=== PATIENT | male | born 1940 | race Caucasian/White ===

== ENCOUNTER 2020-01-21 11:53 | Emergency (ER) | payer OTHER, SELFPAY ==
[2020-01-21 12:14] VITALS: BP 113/81; PULSE 98; RESP 24; TEMP 36.8; O2SAT 95; BMI 43.3
[2020-01-21 12:22] VITALS: BP 113/81; PULSE 107; RESP 18; O2SAT 109
--- NOTE | 2020-01-21 12:25 | ED_ITS ---
HPI - Skin/Abscess/Foreign Bdy General: Chief complaint: Skin/Abscess/Foreign Body Stated complaint: R HAND WOUND Time Seen by Provider: 01/21/20 12:13 History of Present Illness: HPI narrative: Patient has hematoma to the dorsal surface of his right hand that occurred from an accident last week did see his PCP and was evaluated patient's tetanus is up-to-date has no signs of infection he says he is able to move his hand has no pain is just from the tightness of the skin. MD complaint: other (Hematoma right hand) Onset (ago): day(s) Tetanus up to date: yes Location: R hand Severity: mild Quality: aching Pain Consistency: constant Relieving factors: none Exacerbating factors: none Associated symptoms: Reports no associated symptoms; Deny chills, fever(s), nausea or vomiting Review of Systems Const: Denies: fever(s), chills or body aches Eyes: Denies: change in vision or blurry vision ENMT: Denies: throat pain or nasal congestion Card: Denies: chest pain or dyspnea on exertion Resp: Denies: dyspnea, productive cough or non-productive cough GI: Denies: abdominal pain, nausea or vomiting : Denies: difficulty urinating Musc: Denies: extremity pain Skin/Breast: Reports: other (Hematoma to the right hand tenderness); Denies: rash Neuro: Denies: headache(s) Psych: Denies: anxiety or depression Luigi/Lymph: Denies: easy bruising Physical Exam 2 Const: COMMON NORMALS: no acute distress, average body habitus and patient oriented x3 HENMT: COMMON NORMALS: normocephalic HEAD & SCALP: normal to inspection and normocephalic FACE & SINUS: normal facial exam Eye: COMMON NORMALS: conjunctivae normal GENERAL EYE: appearance normal, both eyes and all related structures CONJUNCTIVA: Yes conjunctivae normal Neck/C-Spine: COMMON NORMALS: no JVD Chest: COMMONS NORMALS: normal inspection of the chest Resp: COMMON NORMALS: normal respiratory effort Cardio: COMMON NORMALS: no JVD Extremity: COMMON NORMALS: normal to inspection and full ROM RIGHT UPPER EXTREMITY: Yes hand & digits (Large hematoma on the dorsal surface of the right hand no erythema noted) Neuro: COMMON NORMALS: patient oriented x3 Course Vital Signs: Vital signs: Vital Signs Temperature 98.2 F 01/21/20 12:14 Pulse Rate 107 H 01/21/20 12:22 Respiratory Rate 18 01/21/20 12:22 Blood Pressure 113/81 01/21/20 12:22 Pulse Oximetry 109 H 01/21/20 12:22 MDM - Skin/Abscess/Foreign Bdy MDM Narrative: Medical decision making narrative: I lacerated hematoma on the dorsal surface of right hand after sterile prep with a #11 blade and expressed a large amount of old blood and then it was dressed with a pressure dressing Discharge Plan Discharge Patient Disposition: Home Clinical Impression: Traumatic hematoma of right hand Qualifiers: Encounter type: initial encounter Qualified Code(s): S60.221A - Contusion of right hand, initial encounter Condition: Stable Discharge Orders: Discharge Order (Routine); Ordered 01/21/20 Ordered By: Kelvin Martinez Discharge Diet: Usual diet Discharge Activity: Increase activity as tolerated Activity Restrictions/Additional Instructions: Keep right hand wrapped for least 24 hours monitor for signs and symptoms of infection follow-up your primary care provider if any problems develop Coding Level of Care Code ED Technology Project Manager for Eladio Fwd Exam Comprehensive
[2020-01-21] MEDS: lidocaine 1% INJ 20 mL INTRADERMA (12:29)
[2020-01-21 12:58] VITALS: BP 113/91; PULSE 109; RESP 18; O2SAT 95
[2020-01-21 13:07] VITALS: BP 161/104; PULSE 95; RESP 18; TEMP 36.6; O2SAT 95
== END 2020-01-21 13:09 | disposition home or self-care (01) ==
LOC: ER 12:56
PROVIDERS: Emergency Provider Nurse Practitioner Family
DX: S60.221A Contusion of right hand, initial encounter (principal); X58.XXXA Exposure to other specified factors, initial encounter
CPT/HCPCS: 12345; 99281; 99282

== ENCOUNTER 2020-01-24 10:31 | Emergency (ER) | payer OTHER, SELFPAY ==
[2020-01-24 10:39] VITALS: PULSE 87; RESP 18; TEMP 36.8; O2SAT 96; BMI 43.6
--- NOTE | 2020-01-24 11:00 | CT_ITS ---
WS: [id number] CT RIGHT HAND, WITH CONTRAST HISTORY: abscess Technique: All CT scans at [facility] use at least one of these dose optimization techniq ues: automated exposure control; mA and/or kV adjustment per patient size (includes targeted exams wh ere dose is matched to clinical indication); or iterative reconstruction. DLP: 628.47 mGy.cm COMPARISON: None available. Enhancing complex fluid collection along the dorsal surface of the hand at the level of the mid carpa l measures 4.0 x 2.2 x 5.3 cm. Mass extends from the proximal metacarpals inferiorly to nearly the di stal metacarpals. There is increased density within the fluid collection which may be hemorrhage or p us. No additional collection. 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 5 mm radiopaque fore ign body in the soft tissues adjacent to the distal lateral radius. No osteomyelitis is appreciated. CT/CT hand RT w con [id number] IMPRESSION: Complex soft tissue abscess along the dorsal surface of the hand measures 4.0 x 2.2 x 5.3 cm.
--- NOTE | 2020-01-24 11:02 | W.ED.EXTPRO ---
HPI - Extremity Problem General: Chief complaint: Extremity Injury, Upper Stated complaint: RIGHT HAND PAIN Time Seen by Provider: 01/24/20 10:39 History of Present Illness: HPI Narrative: 79-year-old male he had his right hand crushed between a cattle panel and a SHERIDAN week ago he was in about 4 days ago and had drainage from an abscess on the dorsum of his right hand. It is recurred and now the wound has sealed up and is no longer draining and is swollen and fluctuant to palpation he denies any fever sweats or chills states relatively pain-free. He does have difficult time closing his fist completely. MD Complaint: extremity pain and extremity swelling Onset (ago): day(s) Pain Consistency: constant Location: right Quality: aching Radiation: none Relieving factors: nothing Exacerbating factors: nothing Associated symptoms: Deny arthralgias, chest pain, fever(s), myalgias, rash or short of breath Context: other (Recent crush injury) Review of Systems Const: Denies: fever(s) ENMT: Denies: throat pain, ear or mastoid pain, nasal discharge or nasal congestion Card: Denies: chest pain Resp: Denies: dyspnea, productive cough or non-productive cough GI: Denies: abdominal pain, nausea, vomiting, hematemesis, coffee ground emesis, diarrhea, constipation, bloating, hematochezia or melena : Denies: flank pain, dysuria, urinary frequency or urinary urgency Skin/Breast: Denies: rash PFSH ED PFSH: Medical History (Updated 01/29/20 @ 00:02 by ) COPD (chronic obstructive pulmonary disease) Diabetes mellitus Social History (Updated 01/24/20 @ 11:08 by Eder Whitaker DO) Smoking and tobacco status: former smoker Alcohol intake: never Physical Exam Const: COMMON NORMALS: no acute distress GENERAL APPEARANCE: cooperative and comfortable ORIENTATION/CONSCIOUSNESS: Yes awake, Yes oriented to person, Yes oriented to place and Yes oriented to time HENMT: COMMON NORMALS: normocephalic, atraumatic and hearing grossly normal bilaterally HEAD & SCALP: normocephalic and atraumatic Eye: COMMON NORMALS: Equal, round and reactive pupils present, EOMs intact bilaterally, conjunctivae normal and no scleral icterus CONJUNCTIVA: Yes conjunctivae normal PUPIL: Yes Equal, round and reactive pupils present Neck/C-Spine: COMMON NORMALS: full ROM, no lymphadenopathy, supple and no JVD Lymph: LYMPHATIC: no lymphadenopathy noted and no lymphedema noted Resp: COMMON NORMALS: normal respiratory effort, No retractions, No use of accessory muscles and clear to auscultation bilaterally AUSCULTATION: clear to auscultation bilaterally Cardio: COMMON NORMALS: no JVD, regular rate, regular rhythm and No murmurs present (Cardio) RATE: regular rate RHYTHM: regular rhythm GI: COMMON NORMALS: Soft to palpation and No hepatosplenomegaly present AUSCULTATION: Yes normoactive bowel sounds PALPATION: Yes Soft to palpation, No Tenderness to palpation present (GI), No Guarding due to palpation present (GI) and Yes No hepatosplenomegaly present Extremity: COMMON NORMALS: normal to inspection, capillary refill normal, no clubbing, cyanosis or edema, no calf tenderness and no pedal edema Neuro: SENSORIUM/ORIENTATION: Yes oriented to person, Yes oriented to place and Yes oriented to time Skin: COMMON NORMALS: no rashes or lesions noted GENERAL SKIN EXAM: no rashes or lesions noted Procedures Abscess I/D Site: upper extremity (R hand) Side (if applicable): right Local Anesthetic: lidocaine 1% Amount of anesthesia used (mL): 4 Technique: incised with #11 blade Amount of fluid expressed (mL): 100 Irrigation: No Packing used?: none Complications: other (none - expressed aprox 100 ml clotted blooed) Course Vital Signs: Vital signs: Vital Signs Temperature 98.2 F 01/24/20 10:39 Pulse Rate 91 01/24/20 13:46 Respiratory Rate 18 01/24/20 13:46 Blood Pressure 142/111 01/24/20 13:46 Pulse Oximetry 97 01/24/20 13:46 MDM - Extremity (Nontraumatic) MDM Narrative: Medical decision making narrative: Case management asked to make appointment with Ortho for follow-up Lab Data: Labs: Lab Results 01/24/20 01/24/20 Range/Units 11:08 11:08 WBC 9.0 (4.0-10.0) 10^3/ uL RBC 4.36 (4.1-5.3) 10^6/u L Hgb 12.5 (11.7-16.6) g/dL Hct 38.2 L (42.0-52.0) % MCV 87.6 (80-94) fL MCH 28.7 (28.0-34.0) pg MCHC 32.7 (30.0-36.0) g/dL RDW 14.4 (12.1-15.1) % Plt Count 259 (130-400) 10^3/c mm MPV 10.8 H (7.4-10.4) fL Neut % (Auto) 61.5 % Lymph % (Auto) 22.3 % Waller % (Auto) 11.6 % Eos % (Auto) 3.1 % Baso % (Auto) 1.2 % Neut # (Auto) 5.54 (1.8-7.7) 10^3/u L Lymph # (Auto) 2.0 (0.8-4.8) 10^3/u L Waller # (Auto) 1.1 H (0.2-0.9) 10^3/u L Eos # (Auto) 0.3 (0.0-0.8) 10^3/u L Baso # (Auto) 0.1 (0.0-0.1) 10^3/u L Nucleated RBC % (a uto) 0 % Nucleated RBCs # 0.0 /100WBC Sodium 142 (136-145) mmol/L Potassium 3.6 (3.5-5.1) mmol/L Chloride 105 (98-107) mmol/L Carbon Dioxide 26 (22-29) mmol/L Anion Gap 14.6 (5-19) BUN 11 (8-23) mg/dL Creatinine 0.9 (0.7-1.2) mg/dL GFR Calculation Not Reportable Glucose 128 H (65-115) mg/dL Calculated Osmolal ity 292 (285-295) mOsm/k g Calcium 9.1 (8.5-10.5) mg/dL Discharge Plan Discharge Patient Disposition: Home Clinical Impression: Hematoma Condition: Stable Discharge Orders: Discharge Order (Routine); Ordered 01/24/20 Ordered By: Eder Whitaker Discharge Diet: As Directed Discharge Activity: Limit activity as instructed Activity Restrictions/Additional Instructions: Limit use of right hand. Change dressing once daily apply topical antibiotic [id number] Bactrim DS 1 p.o. twice daily x5 days follow-up with orthopedics next week in the office Discharge Date/Time: 01/24/20 13:52 Coding Level of Care Code ED Personal Fitness Trainer for Jamieg Fwd Exam Comprehensive
[2020-01-24 11:05] VITALS: BP 153/95; PULSE 90; RESP 18; O2SAT 95
[2020-01-24 11:21] LABS: Basophils # 0.1 10^3/uL (0.0-0.1); Basophils % 1.2 %; Eosinophils # 0.3 10^3/uL (0.0-0.8); Eosinophils % 3.1 %; Hematocrit 38.2 % (42.0-52.0); Hemoglobin 12.5 g/dL (11.7-16.6); Lymphocytes % 22.3 %; Mean Corpuscular HGB Conc 32.7 g/dL (30.0-36.0); Mean Corpuscular Hemoglobin 28.7 pg (28.0-34.0); Mean Corpuscular Volume 87.6 fL (80-94); Mean Platelet Volume 10.8 fL (7.4-10.4); Monocytes # 1.1 10^3/uL (0.2-0.9); Monocytes % 11.6 %; Neutrophils # 5.54 10^3/uL (1.8-7.7); Neutrophils % 61.5 %; Nucleated Red Blood Cells % 0 %; Platelet Count 259 10^3/cmm (130-400); Red Blood Count 4.36 10^6/uL (4.1-5.3); Red Cell Distribution Width 14.4 % (12.1-15.1)
[2020-01-24 11:37] LABS: Anion Gap 14.6 (5-19); Blood Urea Nitrogen 11 mg/dL (8-23); Calcium 9.1 mg/dL (8.5-10.5); Carbon Dioxide 26 mmol/L (22-29); Chloride 105 mmol/L (98-107); Glucose 128 mg/dL (65-115); Osmolality Calculated 292 mOsm/kg (285-295); Potassium 3.6 mmol/L (3.5-5.1); Sodium 142 mmol/L (136-145)
[2020-01-24] MEDS: iohexol 300 mg/mL 100 mL Btl IV (12:04)
--- NOTE | 2020-01-24 12:16 | PC.NURSE ---
Read and agree with assessment
[2020-01-24] MEDS: neomycin-poly-bacitracin oint 0.9 gm Pkt 1 APPLIC TOPICAL (13:44)
--- NOTE | 2020-01-24 13:45 | PC.NURSE ---
Wound dressed with telfa, bulky 4x4, and yessy wrap.
[2020-01-24 13:46] VITALS: BP 142/111; PULSE 91; RESP 18; O2SAT 97
--- NOTE | 2020-01-25 09:28 | DCPLANNER ---
appointment manager had message to schedule a follow up appointment for patient with ortho. appointment manager called the ortho clinic, spoke with Noemi, gave clinic patients information. appointment manager was told that patients information would be printed and reviewed. Clinic will call patient with appointment information.
--- NOTE | 2020-01-29 10:55 | DCPLANNER ---
Dulce from ortho called rn case management with appointment information with ortho. Patient has [facility], rn case management called August with [facility], was told that patient had a surgery consult placed with Dr. Torrez. event operations manager called [facility], was told that clinic has a referral placed for patient. Clinic will call patient with appointment information. event operations manager spoke with Dr. Whitaker, referring physician to ortho, was told that it would be fine for patient to follow up with surgery. event operations manager called the ortho clinic, spoke with Kassie, and cancelled the appointment with ortho. [facility] will contact patient with appointment information.
== END 2020-01-24 13:52 | disposition home or self-care (01) ==
PROVIDERS: Emergency Provider Family Medicine
DX: S60.221A Contusion of right hand, initial encounter (principal); J44.9 Chronic obstructive pulmonary disease, unspecified; E11.9 Type 2 diabetes mellitus without complications; Z87.891 Personal history of nicotine dependence; W23.0XXA Caught, crushed, jammed, or pinched between moving objects, initial encounter
CPT/HCPCS: 10140; 12345; 36415; 73201; 80048; 85025; 87040; 87070; 87075; 87205; 99282; 99283; Q9967

== ENCOUNTER → 2020-04-22 15:20 | Outpatient (BNVA) | payer OTHER, SELFPAY | PROVIDERS: Referring Provider Family Medicine; Visit Provider Podiatrist Foot & Ankle Surgery | DX: M25.572 Pain in left ankle and joints of left foot (principal) | CPT/HCPCS: 73630 ==

== ENCOUNTER → 2020-12-19 12:09 | Outpatient (BNVA) | payer OTHER, SELFPAY | PROVIDERS: PCP Family Medicine; Visit Provider Podiatrist Foot & Ankle Surgery | DX: M19.071 Primary osteoarthritis, right ankle and foot (principal) | CPT/HCPCS: 73610; 73630 ==

== ENCOUNTER → 2021-01-21 10:28 | Outpatient (BNVA) | payer OTHER, SELFPAY | PROVIDERS: PCP Family Medicine; Referring Provider Family Medicine; Visit Provider Specialist | DX: M25.762 Osteophyte, left knee (principal); M25.761 Osteophyte, right knee; M25.561 Pain in right knee; M25.562 Pain in left knee; M17.11 Unilateral primary osteoarthritis, right knee; M77.8 Other enthesopathies, not elsewhere classified | CPT/HCPCS: 73560; 73565 ==

== ENCOUNTER 2021-02-18 14:20 | Outpatient (CLI) | payer OTHER, SELFPAY | END 2021-02-18 14:21 | disposition home or self-care (01) | LOC: WOUND 14:22 | PROVIDERS: PCP Family Medicine; Visit Provider Thoracic Surgery (Cardiothoracic Vascular Surgery) | DX: I96 Gangrene, not elsewhere classified (principal); L89.612 Pressure ulcer of right heel, stage 2; Z87.891 Personal history of nicotine dependence | CPT/HCPCS: 11042; G0463 ==

== ENCOUNTER 2021-02-25 14:45 | Outpatient (CLI) | payer OTHER, SELFPAY | END 2021-02-25 14:46 | disposition home or self-care (01) | LOC: WOUND 14:46 | PROVIDERS: PCP Family Medicine; Visit Provider Thoracic Surgery (Cardiothoracic Vascular Surgery) | DX: I96 Gangrene, not elsewhere classified (principal); L89.612 Pressure ulcer of right heel, stage 2; E11.9 Type 2 diabetes mellitus without complications; Z87.891 Personal history of nicotine dependence | CPT/HCPCS: 11042; A6021 ==

== ENCOUNTER 2021-03-04 14:33 | Outpatient (CLI) | payer OTHER, SELFPAY | END 2021-03-04 14:34 | disposition home or self-care (01) | LOC: WOUND 14:34 | PROVIDERS: PCP Family Medicine; Visit Provider Thoracic Surgery (Cardiothoracic Vascular Surgery) | DX: I96 Gangrene, not elsewhere classified (principal); L89.612 Pressure ulcer of right heel, stage 2; E11.9 Type 2 diabetes mellitus without complications; Z87.891 Personal history of nicotine dependence | CPT/HCPCS: 11042 ==

== ENCOUNTER 2021-03-11 15:02 | Outpatient (CLI) | payer OTHER, SELFPAY | END 2021-03-11 15:03 | disposition home or self-care (01) | LOC: WOUND 15:03 | PROVIDERS: PCP Family Medicine; Visit Provider Nurse Practitioner Family | DX: L89.612 Pressure ulcer of right heel, stage 2 (principal); Z87.891 Personal history of nicotine dependence | CPT/HCPCS: 11042 ==

== ENCOUNTER 2021-03-18 15:11 | Outpatient (CLI) | payer OTHER, SELFPAY | END 2021-03-18 15:12 | disposition home or self-care (01) | LOC: WOUND 15:12 | PROVIDERS: PCP Family Medicine; Visit Provider Thoracic Surgery (Cardiothoracic Vascular Surgery) | DX: L89.612 Pressure ulcer of right heel, stage 2 (principal); E11.9 Type 2 diabetes mellitus without complications; Z87.891 Personal history of nicotine dependence | CPT/HCPCS: 97597 ==

== ENCOUNTER 2021-04-01 14:31 | Outpatient (CLI) | payer OTHER, SELFPAY | END 2021-04-01 14:32 | disposition home or self-care (01) | LOC: WOUND 14:32 | PROVIDERS: PCP Family Medicine; Visit Provider Thoracic Surgery (Cardiothoracic Vascular Surgery) | DX: Z09 Encounter for follow-up examination after completed treatment for conditions other than malignant neoplasm (principal); Z87.891 Personal history of nicotine dependence | CPT/HCPCS: 99212 ==

== ENCOUNTER 2021-08-07 07:21 | Outpatient (CLI) | payer OTHER, SELFPAY ==
--- NOTE | 2021-08-07 07:42 | FL_ITS ---
WS: [id number] FL barium swallow [id number] REASON FOR EXAM: GERD FLUOROSCOPY TIME: 1.5 minutes FINDINGS: Swallowing of thin barium was fluoroscopically monitored from the oropharynx to the stomach. Spot dimple ms were obtained for documentation. The swallowing motion appeared normal with a small amount of penetration which cleared with additiona l swallowing. There was no aspiration. In the mid and lower esophagus there was weakening of the primary peristaltic wave with development o f tertiary contractions which were obtained barium in nearly the entire length of the esophagus. This was cleared with additional non barium swallows. There was a small reducible hiatal hernia with no significant Schatzki ring. No reflux was identified . FL/FL barium swallow [id number] IMPRESSION: Potential for aspiration. Speech therapy supervised formal swallowing study rec ommended. Esophageal dysmotility with weakening of the primary peristaltic wave and terti keith contractions leading to significant retention of barium in the esophagus. T he the retention in the esophagus could also add to the risk of aspiration.
== END 2021-08-07 07:22 | disposition home or self-care (01) ==
PROVIDERS: PCP Family Medicine; Visit Provider Family Medicine
DX: K21.9 Gastro-esophageal reflux disease without esophagitis (principal)
CPT/HCPCS: 74220

== ENCOUNTER → 2021-09-09 12:40 | Outpatient (BNVA) | payer OTHER, SELFPAY | PROVIDERS: PCP Family Medicine; Visit Provider Internal Medicine Cardiovascular Disease | DX: I48.91 Unspecified atrial fibrillation (principal); I25.10 Atherosclerotic heart disease of native coronary artery without angina pectoris; I10 Essential (primary) hypertension; E78.5 Hyperlipidemia, unspecified; E11.9 Type 2 diabetes mellitus without complications; Z79.84 Long term (current) use of oral hypoglycemic drugs; Z87.891 Personal history of nicotine dependence | CPT/HCPCS: 99204 ==

== ENCOUNTER 2021-09-24 09:09 | Outpatient (CLI) | payer OTHER, SELFPAY ==
--- NOTE | 2021-09-24 | FL_ITS ---
WS: [id number] MODIFIED BARIUM SWALLOW HISTORY: Other dysphagia FLUOROSCOPY TIME: 1.3 # of spot films: 1 Modified barium swallow was performed by the speech pathologist. Fluoroscopy was provided with the pa tient in a lateral projection. Multiple food consistencies were provided. Patient was able to swallow all food consistencies without difficulty. There was one single episode o f laryngeal penetration toward the end of the examination. No aspiration. Patient also swallowed the barium tablet without difficulty. FL/FL barium swallow modifd [id number] IMPRESSION: 1. No aspiration. 2. Single episode of laryngeal penetration. Please see speech therapist report also for recommendations.
== END 2021-09-24 09:10 | disposition home or self-care (01) ==
LOC: RAD 09:11
PROVIDERS: PCP Family Medicine; Visit Provider Family Medicine
DX: R13.10 Dysphagia, unspecified (principal)
CPT/HCPCS: 74230; 92611

== ENCOUNTER → 2021-10-08 08:48 | Outpatient (BNVA) | payer OTHER, SELFPAY | PROVIDERS: PCP Family Medicine; Visit Provider Specialist | DX: M17.0 Bilateral primary osteoarthritis of knee (principal) | CPT/HCPCS: 20610; J1100; J2795; J3301 ==

== ENCOUNTER → 2022-01-07 09:57 | Outpatient (BNVA) | payer OTHER, SELFPAY | PROVIDERS: PCP Family Medicine; Visit Provider Specialist | DX: M17.0 Bilateral primary osteoarthritis of knee (principal) | CPT/HCPCS: 20610; J7326 ==

== ENCOUNTER → 2022-01-18 11:59 | Outpatient (BNVA) | payer OTHER, SELFPAY | PROVIDERS: PCP Family Medicine; Visit Provider Surgery | DX: K21.9 Gastro-esophageal reflux disease without esophagitis (principal); R13.10 Dysphagia, unspecified | CPT/HCPCS: 99203 ==

== ENCOUNTER → 2022-01-19 13:05 | Outpatient (BNVA) | payer OTHER, SELFPAY | PROVIDERS: PCP Family Medicine; Visit Provider Internal Medicine Cardiovascular Disease | DX: I11.0 Hypertensive heart disease with heart failure (principal); I50.9 Heart failure, unspecified; I48.91 Unspecified atrial fibrillation; I25.10 Atherosclerotic heart disease of native coronary artery without angina pectoris | CPT/HCPCS: 99214 ==

== ENCOUNTER 2022-01-26 10:03 | Outpatient (CLI) | payer OTHER, SELFPAY ==
[2022-01-26 11:36] LABS: Anion Gap 17.8 (5-19); Blood Urea Nitrogen 22 mg/dL (8-23); Calcium 9.1 mg/dL (8.5-10.5); Carbon Dioxide 25 mmol/L (22-29); Chloride 100 mmol/L (98-107); Glucose 103 mg/dL (65-115); Magnesium 1.5 mg/dL (1.7-2.3); NT Pro B Type Natriuretic Pept 193 pg/mL (0-450); Osmolality Calculated 292 mOsm/kg (285-295); Potassium 3.8 mmol/L (3.5-5.1); Sodium 139 mmol/L (136-145)
== END 2022-01-26 10:04 | disposition home or self-care (01) ==
PROVIDERS: PCP Family Medicine; Visit Provider Internal Medicine Cardiovascular Disease
DX: I10 Essential (primary) hypertension (principal); I25.10 Atherosclerotic heart disease of native coronary artery without angina pectoris
CPT/HCPCS: 36415; 80048; 83735; 83880

== ENCOUNTER 2022-03-04 05:23 | Outpatient (CLI) | payer OTHER, SELFPAY ==
--- NOTE | 2022-03-04 06:15 | USCV_ITS ---
Huber Holloway Age: 81 Gender: M : 1940 Exam Date: 03/04/2022 06:11 Ordering Phys: Nancy He MD ([email or web address]) Technologist: DOMINICK [place] [facility] [place]: SHORTNESS OF BREATH BP: 140 / 78 HR: 68 Rhythm: Sinus Technical Quality: Fair MEASUREMENTS (Male / Female) Normal Values 2D ECHO LV Diastolic Diameter PLAX 5.4 cm 4.2 - 5.9 / 3.9 - 5.3 cm LV Systolic Diameter PLAX 3.7 cm IVS Diastolic Thickness 1.7 cm 0.6 - 1.0 / 0.6 - 0.9 cm IVS Systolic Thickness 2.4 cm LVPW Diastolic Thickness 1.7 cm 0.6 - 1.0 / 0.6 - 0.9 cm LVPW Systolic Thickness 2.2 cm LVOT Diameter 2.0 cm LV Ejection Fraction 2D Teich 58.7 % LV Ejection Fraction MOD 2C 65.9 % LV Ejection Fraction 2C AL 67.2 % LA Diameter 3.9 cm LA Width 3.4 cm LA Height 6.0 cm RA Width 3.6 cm RA Height 4.1 cm Aorta at Sinotubular Diameter 2.6 cm IVC Diameter 2.1 cm M-MODE Aortic Annulus Diameter 2.6 cm LA Ao Ratio MM 1.3 MV E Point Septal Separation 0.3 cm DOPPLER AV Peak Velocity 167.7 cm/s LVOT Peak Velocity 129.0 cm/s AV Area Cont Eq vti 2.3 cm squared AV Area Cont Eq pk 2.5 cm squared MV Peak Velocity 105.0 cm/s MV Area PHT 3.0 cm squared Mitral E to A Ratio 1.0 MV E' Velocity 55.0 cm/s Mitral E to MV E' Ratio 10.3 Mitral E to LV E' Lateral Ratio 9.6 Mitral E to LV E' Septal Ratio 11.2 TR Peak Velocity 230.2 cm/s TR Peak Gradient 21.2 mmHg TR Mean Velocity 169.5 cm/s TR Mean Gradient 13.1 mmHg TR Velocity Time Integral 70.6 cm TV Peak E Velocity 64.0 cm/s Right Atrial Pressure 3.0 mmHg Pulmonary Artery Systolic Pressu 24.2 mmHg FINDINGS Left Ventricle Normal left ventricular size, systolic function and wall thickness, with no diagnostic regional wall motion abnormalities. Left ventricular ejection fraction is estimated at 55 %. Normal diastolic function. Right Ventricle Normal right ventricular size and systolic function. Normal right ventricular systolic pressure. Right Atrium Normal right atrial size. Left Atrium Moderately increased left atrial size. Mitral Valve Mild mitral annular calcification. Structurally normal mitral valve. No mitral valve stenosis. No mitral valve regurgitation. Aortic Valve Aortic valve not well visualized. No aortic valve stenosis. No aortic valve regurgitation. Tricuspid Valve Structurally normal tricuspid valve. No tricuspid valve regurgitation. Pulmonic Valve Pulmonic valve not well visualized. Pericardium No pericardial effusion. Aorta Normal size aortic root and proximal ascending aorta. IVC Normal sized inferior vena cava. CONCLUSIONS 1. Normal left ventricular size, systolic function and wall thickness, with no diagnostic regional wall motion abnormalities. Left ventricular ejection fraction is estimated at 55-60 %. Normal diastolic function. 2. Normal right ventricular size and systolic function. 3. Moderately increased left atrial size. 4. No prior similar studies to compare. Nancy He MD (Electronically Signed) Final Date: 10 March 2022 10:06 S
== END 2022-03-04 05:24 | disposition home or self-care (01) ==
LOC: RAD 05:26
PROVIDERS: PCP Family Medicine; Visit Provider Internal Medicine Cardiovascular Disease
DX: R06.02 Shortness of breath (principal); I25.10 Atherosclerotic heart disease of native coronary artery without angina pectoris; I48.91 Unspecified atrial fibrillation
CPT/HCPCS: 93306

== ENCOUNTER 2022-04-22 06:43 | Day surgery (SDC) | payer OTHER, SELFPAY ==
[2022-04-20 09:02] VITALS: BMI 41.3
[2022-04-22 07:06] VITALS: BP 164/83; PULSE 71; RESP 18; TEMP 36.1; O2SAT 96
--- NOTE | 2022-04-22 07:30 | W.PM.OPSFHP ---
Same Day Surgery H&P Indication for Procedure/HPI DATE OF PROCEDURE: April 22, 2022 CHIEF COMPLAINT/INDICATIONFOR SURGICAL PROCEDURE: Difficulty in swallowing PREOP DIAGNOSIS: Dysphagia PLANNED PROCEDURE: Operation Date: 04/22/22 08:30 Proposed Procedures p EGD 63415,K21.9(Not Applicable) - Bimal Torrez MD 01/18/2022 This is a pleasant 81 years old gentleman referred to my practice with history of worsening dysphagia particularly to liquids.? For the past year or so.? The patient did undergo a modified barium swallow on 09/24/2021 that did show 1.? No aspiration. 2.? Single episode of laryngeal penetration. And a swallow study in the form of barium swallow that did show Potential for aspiration. Speech therapy supervised formal swallowing study recommended. Esophageal dysmotility with weakening of the primary peristaltic wave and tertiary contractions leading to significant retention of barium in the esophagus. The the retention in the esophagus could also add to the risk of aspiration. ? Patient was given recommendations by speech pathology to have liquids by straw and to be positioned in 90 degrees.? Amount of supervision as needed.? Limit size of spoonfuls to half teaspoon.? Medication administration forms with liquid.? Overall patient was encouraged to use a straw with liquids and decrease the size of his bites and sips to decrease risk of aspiration. Patient was referred to my practice for further evaluation. 04/22/2022 Patient comes today for EGD ROS All systems have been reviewed negative except as for the above or per problem list. Medications/Allergies* Home Medications Medication Instructions Recorded Confirmed Type albuterol sulfate 90 mcg/actuation 2 inh inhalation Q6H PRN Shortness 02/04/20 04/22/22 History breath activated powder inhaler Of Breath carvedilol 25 mg tablet 25 mg PO BID 02/04/20 04/22/22 History montelukast 10 mg tablet 10 mg PO DAILY 02/04/20 04/22/22 History tiotropium bromide 2.5 2 inh inhalation QAM 02/04/20 04/22/22 History mcg/actuation mist for inhalation amiodarone 200 mg tablet 200 mg PO DAILY 09/09/21 04/22/22 History clopidogrel 75 mg tablet 75 mg PO DAILY 09/09/21 04/22/22 History fluticasone 250 mcg-salmeterol 50 1 inh inhalation Q12H 09/09/21 04/22/22 History mcg/dose blistr powdr for inhalation metformin 1,000 mg tablet 1,000 mg PO BID 09/09/21 04/22/22 History nifedipine 60 mg tablet,extended 60 mg PO DAILY 09/09/21 04/22/22 History release 24 hr pantoprazole 40 mg tablet,delayed 40 mg PO DAILY 09/09/21 04/22/22 History release pravastatin 40 mg tablet 40 mg PO DAILY 09/09/21 04/22/22 History warfarin 5 mg tablet 5 mg PO DIRECTED 09/09/21 04/22/22 History cyanocobalamin (vitamin B-12) 1,000 mcg SUBCUT .1x month 01/18/22 04/22/22 History 1,000 mcg/mL injection kit furosemide 20 mg tablet 20 mg PO BID 04/22/22 04/22/22 History losartan 100 mg tablet 100 mg PO DAILY 04/22/22 04/22/22 History potassium chloride 10 mEq 20 meq PO DIRECTED 04/22/22 04/22/22 History tablet,extended release Allergies/Adverse Reactions Allergy/AdvReac Type Severity Reaction Status Date / Time No Known Allergies Allergy Verified 04/22/22 07:31 Pertinent History/Comorbid Conditions* Medical History (Updated 01/21/22 @ 17:24 by Nancy He MD) A-fib CAD (coronary artery disease) CHF (NYHA class III, ACC/AHA stage C) COPD (chronic obstructive pulmonary disease) Diabetes mellitus History of colon polyps Hyperlipidemia Hypertension Surgical History (Updated 09/09/21 @ 13:42 by Nancy He MD) S/P appendectomy S/P coronary angiogram Family History (Updated 09/09/21 @ 13:28 by Inez Dawkins RN) Diabetes Father Hypertension Father Social History Smoking and tobacco status: never smoked Alcohol intake: never Pertinent Exam Findings alert, oriented x 3, regular rate & rhythm and procedure specific exam findings (Abdominal exam nontender nondistended soft) Recommendations Surgery/Procedure today (EGD with possible biopsy) Coding Level of Care Code Acute O And M Supervisor for Chg Carlos
[2022-04-22 07:40] LABS: Glucose Point of Care 111 mg/dL (70-110)
[2022-04-22] MEDS: sodium chloride 0.9% 1,000 ML 30 ML IV (07:44)
--- NOTE | 2022-04-22 08:28 | ANES.PREANE2 ---
Pre-Anesthetic Assessment Height/Weight: Height 1.75 m Weight 127.006 kg Temp Pulse Resp BP Pulse Ox O2 Del Method 97.0 F L 71 18 164/83 96 04/22/22 07:06 04/22/22 07:06 04/22/22 07:06 04/22/22 07:06 04/22/22 07:06 04/22/22 07:06 Preop Diagnosis: Dysphagia Operation Date: 04/22/22 08:30 Proposed Procedures p EGD 99748,K21.9(Not Applicable) - Bimal Torrez MD Familial anesthetic complications: None Was Beta Charles taken within 24 hours: N/A Was Clonidine taken within 24 hours: N/A Last intake: Intake Last Liquid Date 04/21/22 Last Liquid Time 23:30 Last Solid Date 04/21/22 Last Solid Time 21:00 Social No alcohol and No tobacco Exam alert, oriented x 3, clear to auscultation bilaterally and regular rate & rhythm Airway Mallampati: Class III Dentition: other (missing) Pulmonary Chronic Obstructive Pulmonary Disease CV/HEM Atrial Fibrillation, Congestive Heart Failure and Hypertension Metabolic Diabetes Mellitus, Hyperlipidemia and Morbid Obesity Anesthetic Plan ASA status: 3 Anesthesia: MAC Risk of > 500 ml blood loss (7ml/kg in children): No Medications/Allergies Home Medications Medication Instructions Recorded Confirmed Last Taken Type albuterol sulfate 90 mcg/actuation 2 inh inhalation Q6H PRN Shortness 02/04/20 04/22/22 04/21/22 History breath activated powder inhaler Of Breath carvedilol 25 mg tablet 25 mg PO BID 02/04/20 04/22/22 04/21/22 History montelukast 10 mg tablet 10 mg PO DAILY 02/04/20 04/22/22 04/21/22 History tiotropium bromide 2.5 2 inh inhalation QAM 02/04/20 04/22/22 04/21/22 History mcg/actuation mist for inhalation amiodarone 200 mg tablet 200 mg PO DAILY 09/09/21 04/22/22 04/21/22 History clopidogrel 75 mg tablet 75 mg PO DAILY 09/09/21 04/22/22 04/17/22 History fluticasone 250 mcg-salmeterol 50 1 inh inhalation Q12H 09/09/21 04/22/22 04/21/22 History mcg/dose blistr powdr for inhalation metformin 1,000 mg tablet 1,000 mg PO BID 09/09/21 04/22/22 04/21/22 History nifedipine 60 mg tablet,extended 60 mg PO DAILY 09/09/21 04/22/22 04/21/22 History release 24 hr pantoprazole 40 mg tablet,delayed 40 mg PO DAILY 09/09/21 04/22/22 04/21/22 History release pravastatin 40 mg tablet 40 mg PO DAILY 09/09/21 04/22/22 04/21/22 History warfarin 5 mg tablet 5 mg PO DIRECTED 09/09/21 04/22/22 04/19/22 History cyanocobalamin (vitamin B-12) 1,000 mcg SUBCUT .1x month 01/18/22 04/22/22 04/06/22 History 1,000 mcg/mL injection kit furosemide 20 mg tablet 20 mg PO BID 04/22/22 04/22/22 04/21/22 History losartan 100 mg tablet 100 mg PO DAILY 04/22/22 04/22/22 04/21/22 History potassium chloride 10 mEq 20 meq PO DIRECTED 04/22/22 04/22/22 04/21/22 History tablet,extended release Allergies Allergy/AdvReac Type Severity Reaction Status Date / Time No Known Allergies Allergy Verified 04/22/22 07:31 Current Medications Generic Name Dose Route Start Last Admin Trade Name Freq PRN Reason Stop Dose Admin Sodium Chloride 1,000 mls @ 30 mls/hr 04/22/22 07:00 04/22/22 07:44 Sodium Chloride 0.9% IV 30 mls/hr .Q24H SHARON Administration PFSH Anesthesia Medical History (Updated 01/21/22 @ 17:24 by Nancy He MD) A-fib CAD (coronary artery disease) CHF (NYHA class III, ACC/AHA stage C) COPD (chronic obstructive pulmonary disease) Diabetes mellitus History of colon polyps Hyperlipidemia Hypertension Surgical History S/P appendectomy S/P coronary angiogram Family History Father Diabetes Hypertension Social History Smoking and tobacco status: never smoked Alcohol intake: never Data Anesthesia Cardiac Studies: Echocardiogram 03/04/22
[2022-04-22 08:47] VITALS: BP 135/71; PULSE 58; RESP 16; TEMP 36.3; O2SAT 96
[2022-04-22 08:56] VITALS: BP 139/78; PULSE 62; RESP 18; O2SAT 95
--- NOTE | 2022-04-22 15:46 | ANE.PACU2 ---
Inpatient post-anesthesia follow up: Airway intact: Yes Vital signs: Temperature 97.3 F Pulse Rate 62 Respiratory Rate 18 Blood Pressure 139/78 Pulse Oximetry 95 Oxygen Delivery Me thod Room Air Oxygen Flow Rate 3 Fraction of Inspir ed Oxygen Hydration adequate: Yes Nausea and vomiting: No Pain level: 1 Mental status: Baseline
== END 2022-04-22 09:17 | disposition home or self-care (01) ==
PROVIDERS: PCP Family Medicine; Visit Provider Surgery
PROC: 0DJ08ZZ Inspection of Upper Intestinal Tract, Via Natural or Artificial Opening Endoscopic (ICD-10-PCS; CPT 43235; principal; 2022-04-22 08:30)
DX: R13.10 Dysphagia, unspecified (principal); K29.50 Unspecified chronic gastritis without bleeding; B96.81 Helicobacter pylori [H. pylori] as the cause of diseases classified elsewhere; I48.91 Unspecified atrial fibrillation; I25.10 Atherosclerotic heart disease of native coronary artery without angina pectoris; I11.0 Hypertensive heart disease with heart failure; I50.9 Heart failure, unspecified; J44.9 Chronic obstructive pulmonary disease, unspecified; E11.9 Type 2 diabetes mellitus without complications; Z86.010 Personal history of colon polyps; E78.5 Hyperlipidemia, unspecified; K21.00 Gastro-esophageal reflux disease with esophagitis, without bleeding; E66.01 Morbid (severe) obesity due to excess calories; Z68.41 Body mass index [BMI] 40.0-44.9, adult; Z79.84 Long term (current) use of oral hypoglycemic drugs
CPT/HCPCS: 36416; 43239; 82962; 88305; 88342; J2704; J7030

== ENCOUNTER → 2022-05-04 15:35 | Outpatient (BNVA) | payer OTHER, SELFPAY | PROVIDERS: PCP Family Medicine; Visit Provider Surgery | DX: Z09 Encounter for follow-up examination after completed treatment for conditions other than malignant neoplasm (principal); K21.9 Gastro-esophageal reflux disease without esophagitis | CPT/HCPCS: 99212 ==

== ENCOUNTER → 2022-05-13 08:38 | Outpatient (BNVA) | payer OTHER, SELFPAY | PROVIDERS: PCP Family Medicine; Visit Provider Specialist | DX: M17.0 Bilateral primary osteoarthritis of knee (principal); Z71.89 Other specified counseling | CPT/HCPCS: 20610; J1100; J2795; J3301 ==

== ENCOUNTER → 2022-07-15 08:49 | Outpatient (BNVA) | payer OTHER, SELFPAY | PROVIDERS: PCP Family Medicine; Visit Provider Specialist | DX: M17.0 Bilateral primary osteoarthritis of knee (principal); Z71.89 Other specified counseling | CPT/HCPCS: 20610; J1100; J2795; J3301; J7326 ==

== ENCOUNTER → 2022-07-20 13:01 | Outpatient (BNVA) | payer OTHER, SELFPAY | PROVIDERS: PCP Family Medicine; Visit Provider Nurse Practitioner Family | DX: I25.10 Atherosclerotic heart disease of native coronary artery without angina pectoris (principal); I11.0 Hypertensive heart disease with heart failure; I50.9 Heart failure, unspecified; Z79.01 Long term (current) use of anticoagulants | CPT/HCPCS: 99214 ==

== ENCOUNTER → 2022-09-16 09:33 | Outpatient (BNVA) | payer OTHER, SELFPAY | PROVIDERS: PCP Family Medicine; Visit Provider Specialist | DX: M17.0 Bilateral primary osteoarthritis of knee (principal); Z71.89 Other specified counseling | CPT/HCPCS: 20610; J1100; J2795; J3301 ==

== ENCOUNTER → 2023-01-13 08:03 | Outpatient (BNVA) | payer OTHER, SELFPAY | PROVIDERS: PCP Family Medicine; Visit Provider Specialist | DX: M17.0 Bilateral primary osteoarthritis of knee (principal) | CPT/HCPCS: 20610; J7326 ==

== ENCOUNTER → 2023-02-01 14:30 | Outpatient (BNVA) | payer OTHER, SELFPAY | PROVIDERS: PCP Family Medicine; Visit Provider Internal Medicine Cardiovascular Disease | DX: I11.0 Hypertensive heart disease with heart failure (principal); I50.9 Heart failure, unspecified; I48.91 Unspecified atrial fibrillation; I25.10 Atherosclerotic heart disease of native coronary artery without angina pectoris; Z79.01 Long term (current) use of anticoagulants | CPT/HCPCS: 99214 ==

== ENCOUNTER → 2023-04-21 07:18 | Outpatient (BNVA) | payer OTHER, SELFPAY | PROVIDERS: PCP Family Medicine; Visit Provider Specialist | DX: M17.0 Bilateral primary osteoarthritis of knee (principal) | CPT/HCPCS: 20610; J1100; J2795; J3301 ==

== ENCOUNTER → 2023-07-12 10:11 | Outpatient (BNVA) | payer OTHER, SELFPAY | PROVIDERS: PCP Family Medicine; Visit Provider Podiatrist Foot & Ankle Surgery | DX: E11.42 Type 2 diabetes mellitus with diabetic polyneuropathy (principal); Q66.81 Congenital vertical talus deformity, right foot; Q66.82 Congenital vertical talus deformity, left foot; Z79.84 Long term (current) use of oral hypoglycemic drugs | CPT/HCPCS: 99213 ==

== ENCOUNTER → 2023-07-15 07:35 | Outpatient (BNVA) | payer OTHER, SELFPAY | PROVIDERS: PCP Family Medicine; Visit Provider Specialist | DX: M17.0 Bilateral primary osteoarthritis of knee (principal) | CPT/HCPCS: 20610; J7326 ==

== ENCOUNTER → 2023-08-22 11:35 | Outpatient (BNVA) | payer OTHER, SELFPAY | PROVIDERS: PCP Family Medicine; Visit Provider Nurse Practitioner Family | DX: I25.10 Atherosclerotic heart disease of native coronary artery without angina pectoris (principal); I50.9 Heart failure, unspecified; I10 Essential (primary) hypertension | CPT/HCPCS: 93005; 99214 ==

== ENCOUNTER 2023-09-30 09:37 | Outpatient (CLI) | payer OTHER, SELFPAY ==
--- NOTE | 2023-09-30 | ECG_ITS ---
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 Interpretive Statements NAME OF STUDY: LEXISCAN SESTAMIBI STRESS TEST INDICATION: Worsening Dyspnea PROCEDURE: At the baseline, the EKG revealed normal sinus rhythm with a normal ST Ts. The baseline heart was 65 bpm with a blood pressue of 147/72 mm of Hg Lexiscan was infused over a period of 20 seconds. A total of 0.4 milligrams of Lexiscan was infused. The stress phase was continued for a total of 5 minutes. Heart rate at the end of the stress phase was 68 bpm with a blood pressure 132/67 mm of Hg. The EKG at the peak infusion revealed frequent PVCs in the form of bigeminy. Sestamibi was injected 20 seconds after the Lexiscan infusion. Heart rate at the end of the recovery phase was 65 bpm with a blood pressure of 135/63 mm of Hg. CONCLUSION: 1. No significant EKG changes with the LexiScan infusion 2. No LexiScan induced chest pain. Frequent PVCs in the form of bigeminy were noted during the Lexiscan infusion. 3. Normal blood pressure and heart rate response 4. Sestamibi/sestamibi perfusion scan pending; see separate report. Electronically Signed On 10-01-2023 18:37:12 CDT by Jarvis Shields M.D. [id number]
[2023-09-30 10:05] VITALS: BMI 41.8
--- NOTE | 2023-09-30 10:09 | NMCV_ITS ---
NM amena perf SPECT r/s* [id number] Huber Holloway Age: 83 Gender: M : 1940 Exam Date: 09/30/2023 10:21 Ordering Phys: Tania Ortega Technologist: ROCKY Olivo Exam Location: [facility] Indications: ATHEROSCLEROTIC HEART DISEASE STRESS TEST Please [facility] IMAGE PROTOCOL Rest/Stress 1 Lexiscan Day Radiopharmaceutical Dose (mCi) Administration Site Administered by Rest: Tc-99m 11.0 IV ROCKY [place] Sestamibi Stress:Tc-99m 32.3 IV ROCKY [place] Sestamibi Rest: 30-Sep-2023 60 Discovery 630 Stress: 30-Sep-2023 30 Discovery 630 0.4mg Lexiscan. Supine position only as patient was unable to lay prone. SPECT RESULTS Technical Quality: Excellent Raw Data Analysis: Normal Image Corrections: No attenuation or motion correction applied Summed Stress Score: 3 Summed Rest Score: 1 Summed Difference Score: 3 PERFUSION FINDINGS Small area of moderately decreased aseptic in the mid inferior wall region and a minimally decreased tracer uptake in the apical lateral wall regions. Some reversibility was noted in these regions. FUNCTIONAL RESULTS (calculated via Gated SPECT) Stress Image LV EF (%): 60 Stress EDV (mL):126 TID: 0.88 Stress ESV (mL):50 FUNCTIONAL FINDINGS: Segmental wall motion analysis revealing no gross wall motion abnormalities IMPRESSIONS 1. Myocardial perfusion imaging revealing small areas of reversible defect in the mid inferior wall and apical lateral wall regions suggesting ischemia in the distribution of the right coronary artery/circumflex artery regions. 2. Normal LV ejection fraction of 60% 3. LV wall motion analysis revealing no gross wall motion abnormalities. 4. Mildly dilated LV cavity with an end-systolic volume of 50 mL No similar previous studies are available for comparison Dr Jarvis Shields MD [facility] (Electronically Signed) Final Date: 30 Sep 2023 14:05 S
[2023-09-30] MEDS: regadenoson 0.4 Mg/5 ml Syringe 0.400000000000000022 MG IVP (11:20)
[2023-09-30 11:46] VITALS: BP 125/67; PULSE 74
== END 2023-09-30 09:38 | disposition home or self-care (01) ==
LOC: CDL 09:37
PROVIDERS: PCP Family Medicine; Visit Provider Nurse Practitioner Family
DX: I25.10 Atherosclerotic heart disease of native coronary artery without angina pectoris (principal)
CPT/HCPCS: 36415; 78452; 93017; 96374; A9500; J2785

== ENCOUNTER → 2023-10-11 07:37 | Outpatient (BNVA) | payer OTHER, SELFPAY | PROVIDERS: PCP Family Medicine; Visit Provider Podiatrist Foot & Ankle Surgery | DX: E11.42 Type 2 diabetes mellitus with diabetic polyneuropathy (principal); M21.6X1 Other acquired deformities of right foot; M21.6X2 Other acquired deformities of left foot; L60.3 Nail dystrophy; L84 Corns and callosities; Z79.84 Long term (current) use of oral hypoglycemic drugs | CPT/HCPCS: 11055; 11721 ==

== ENCOUNTER → 2023-10-14 08:10 | Outpatient (BNVA) | payer OTHER, SELFPAY | PROVIDERS: PCP Family Medicine; Visit Provider Specialist | DX: M25.561 Pain in right knee (principal); M25.562 Pain in left knee; M17.0 Bilateral primary osteoarthritis of knee | CPT/HCPCS: 20610; J1100; J2795; J3301 ==

== ENCOUNTER → 2024-01-11 09:52 | Outpatient (BNVA) | payer OTHER, SELFPAY | PROVIDERS: PCP Family Medicine; Visit Provider Podiatrist Foot & Ankle Surgery | DX: E11.42 Type 2 diabetes mellitus with diabetic polyneuropathy (principal); L60.3 Nail dystrophy; L84 Corns and callosities; Z79.84 Long term (current) use of oral hypoglycemic drugs | CPT/HCPCS: 11055; 11721 ==

== ENCOUNTER → 2024-01-20 07:51 | Outpatient (BNVA) | payer OTHER, SELFPAY | PROVIDERS: PCP Family Medicine; Visit Provider Specialist | DX: M17.0 Bilateral primary osteoarthritis of knee (principal) | CPT/HCPCS: 20610; J1100; J2795; J3301 ==

== ENCOUNTER → 2024-03-02 09:42 | Outpatient (BNVA) | payer OTHER, SELFPAY | PROVIDERS: PCP Family Medicine; Visit Provider Internal Medicine | DX: I11.0 Hypertensive heart disease with heart failure (principal); I50.9 Heart failure, unspecified; I48.91 Unspecified atrial fibrillation; I25.10 Atherosclerotic heart disease of native coronary artery without angina pectoris; E78.5 Hyperlipidemia, unspecified; E11.9 Type 2 diabetes mellitus without complications; Z87.891 Personal history of nicotine dependence; Z79.84 Long term (current) use of oral hypoglycemic drugs; Z79.01 Long term (current) use of anticoagulants | CPT/HCPCS: 99214 ==

== ENCOUNTER → 2024-04-18 08:46 | Outpatient (BNVA) | payer OTHER, SELFPAY | PROVIDERS: PCP Family Medicine; Visit Provider Podiatrist Foot & Ankle Surgery | DX: E11.42 Type 2 diabetes mellitus with diabetic polyneuropathy; L60.3 Nail dystrophy; L84 Corns and callosities; Z79.84 Long term (current) use of oral hypoglycemic drugs | CPT/HCPCS: 11056; 11721 ==

== ENCOUNTER → 2024-05-04 07:39 | Outpatient (BNVA) | payer OTHER, SELFPAY | PROVIDERS: PCP Family Medicine; Visit Provider Specialist | DX: M17.0 Bilateral primary osteoarthritis of knee (principal); Z71.89 Other specified counseling | CPT/HCPCS: 20610; J1100; J2795; J3301 ==

== ENCOUNTER → 2024-06-29 10:25 | Outpatient (BNVA) | payer OTHER, SELFPAY | PROVIDERS: PCP Family Medicine; Visit Provider Internal Medicine | DX: I11.0 Hypertensive heart disease with heart failure (principal); I50.9 Heart failure, unspecified; M79.604 Pain in right leg; M79.605 Pain in left leg; I48.91 Unspecified atrial fibrillation; I25.10 Atherosclerotic heart disease of native coronary artery without angina pectoris; E78.5 Hyperlipidemia, unspecified; E11.9 Type 2 diabetes mellitus without complications; Z87.891 Personal history of nicotine dependence | CPT/HCPCS: 99214 ==

== ENCOUNTER 2024-07-05 08:10 | Outpatient (CLI) | payer OTHER, SELFPAY ==
--- NOTE | 2024-07-05 08:30 | CTR_ITS ---
PROCEDURE INFORMATION: Exam: CTA Abdominal Aorta and Bilateral Lower Extremities (Run-off) With Contrast Exam date and time: 07/05/2024 8:55 AM Age: 84 years old Clinical indication: Bilateral leg pain x 3-4 months TECHNIQUE: Imaging protocol: Computed tomographic angiography of the of the abdominal aorta, pelvis and bilateral lower extremities with contrast. 3D rendering (Not supervised by radiologist): MIP and/or 3D reconstructed images were created by the technologist. Radiation optimization: All CT scans at this facility use at least one of these dose optimization techniques: automated exposure control; mA and/or kV adjustment per patient size (includes targeted exams where dose is matched to clinical indication); or iterative reconstruction. Contrast material: OMNIPAQUE 350; Contrast volume: 125 ml; Contrast route: INTRAVENOUS (IV); COMPARISON: CR XR knees AP WB w BI lmt ORTH 01/21/2021 10:36 AM RADIATION DOSE METRICS: Total DLP (mGy-cm): 1834.15 FINDINGS: Aorta: Mild to moderate calcified plaque. Celiac trunk and mesenteric arteries: Incidental note of a replaced right hepatic artery arising from the superior mesenteric artery. Mild calcified plaque at the origins of the celiac artery and superior mesenteric artery. Renal arteries: Calcified plaque at the origins bilaterally, mild on the right and monitoring on the left. 20% stenosis at the origin of the left renal artery. Right iliac arteries: Scattered mild calcified plaque. Right femoral/popliteal arteries: Mild calcified plaque. Right infrapopliteal arteries: Mild to moderate calcified plaque, particularly in the left posterior tibial artery. Single-vessel runoff to the right foot via the right posterior tibial artery. Left iliac arteries: Scattered mild calcified plaque. Moderate noncalcified plaque at the origin of the left internal iliac artery with 30% stenosis. Left femoral/popliteal arteries: Scattered mild calcified plaque. Left infrapopliteal arteries: Ewwy-by-glufnidf calcified plaque, particularly in the posterior tibial artery. Extensive focal noncalcified plaque in the proximal/mid left posterior tibial artery with greater than 90% stenosis (series 39, image 24 and series 26, image 1006). Single-vessel runoff to the left foot via the left posterior tibial artery. Lungs: Visualized lungs are clear. Pleural spaces: No pleural effusion. Heart: Mild enlargement of the heart. Coronary arteries: Extensive atherosclerotic calcification in the coronary arteries. Liver: The liver is unremarkable. Gallbladder and biliary ducts: Patient has had a previous cholecystectomy. No biliary ductal dilatation. Pancreas: The pancreas is unremarkable. No pancreatic ductal dilatation. Spleen: The spleen is unremarkable. Adrenal glands: The right adrenal gland is unremarkable. Indeterminate focus in the left adrenal gland. Hounsfield units show density greater than expected for an adenoma. This measures 1.6 x 1.2 cm (series 26, image 138). Kidneys and ureters: Subcentimeter hypodense foci in both right and left kidneys that are too small to characterize, however likely represent small cysts. Simple cysts in both kidneys. The largest cyst in the right kidney measures 1.4 cm. The largest cyst in the left kidney measures 1.8 cm. The right and left ureters are unremarkable. Stomach and bowel: Nonspecific air-fluid levels present in the small bowel and colon. No dilated bowel loops. No pneumatosis. No bowel wall thickening. The stomach is unremarkable for the degree of distension. Appendix: Appendix not definitely visualized. No inflammatory changes in the pericecal region however. Urinary bladder: The bladder is unremarkable for the degree of distension. Reproductive: Nonspecific parenchymal calcifications in the prostate gland. Calcifications along the penile shaft. The right and left testes are unremarkable. Intraperitoneal space: No free intraperitoneal air. No ascites. No loculated fluid collections to suggest an abscess. Lymph nodes: No lymphadenopathy. Bones/joints: Multilevel degenerative changes of varying severity in the visualized spine. Moderate degenerative changes at the right and left sacroiliac joints. Mild degenerative changes at the right and left hips. Marked degenerative changes at both knees. Bilateral large popliteal cyst. Soft tissues: No acute abnormality in the visualized soft tissues. Calcifications in the bilateral Achilles tendons suggesting calcific tendinitis. CT/CT angio abd aorta runof [id number] IMPRESSION: 1. Indeterminate focus in the left adrenal gland. Non-emergent adrenal CT is recommended. Non-emergent chemical shift MRI (CS-MR) may be considered. (Reference: Roman-Denis) 2. Calcifications in the bilateral Achilles tendons suggesting calcific tendinitis. 3. Bilateral large popliteal cysts. 4. Incidental note of a replaced right hepatic artery arising from the superior mesenteric artery. 5. Atherosclerotic disease of varying severity, most pronounced in the right and left lower legs. 6. Greater than 90% focal stenosis in the proximal/mid left posterior tibial artery. 7. 20% stenosis at the origin of the left renal artery. 8. 30% stenosis at the origin of the left internal iliac artery. 9. Single-vessel runoff to the right and left feet via the posterior tibial arteries. 10. Incidental/nonacute findings are listed in the report. REFERENCES: Mike BURTON et al. Management of Incidental Adrenal Masses: A White Paper of the ACR Incidental Findings Committee. J Am Ethel Radiol. 2017;14(8):2798-7095.
[2024-07-05 08:53] LABS: Blood Urea Nitrogen 24 mg/dL (8-23)
== END 2024-07-05 08:11 | disposition home or self-care (01) ==
PROVIDERS: PCP Family Medicine; Visit Provider Internal Medicine
DX: M79.604 Pain in right leg (principal); M79.605 Pain in left leg; R93.89 Abnormal findings on diagnostic imaging of other specified body structures; M65.862 Other synovitis and tenosynovitis, left lower leg; M65.861 Other synovitis and tenosynovitis, right lower leg; M71.22 Synovial cyst of popliteal space [Baker], left knee; M71.21 Synovial cyst of popliteal space [Baker], right knee; I70.90 Unspecified atherosclerosis; I70.8 Atherosclerosis of other arteries; I70.1 Atherosclerosis of renal artery; I70.0 Atherosclerosis of aorta; I51.7 Cardiomegaly; I25.10 Atherosclerotic heart disease of native coronary artery without angina pectoris; Z90.49 Acquired absence of other specified parts of digestive tract; N28.1 Cyst of kidney, acquired; M47.9 Spondylosis, unspecified; M16.0 Bilateral primary osteoarthritis of hip; M46.1 Sacroiliitis, not elsewhere classified; M17.0 Bilateral primary osteoarthritis of knee
CPT/HCPCS: 75635; 82565; 84520

== ENCOUNTER 2024-07-16 09:26 | Emergency (ER) | payer OTHER, MEDICARE, SELFPAY ==
[2024-07-16 09:32] VITALS: BP 119/71; PULSE 52; TEMP 36.6; O2SAT 97; BMI 41.8
--- NOTE | 2024-07-16 09:37 | PC.PHAR ---
[facility] 07/16/24 9:35am
--- NOTE | 2024-07-16 09:43 | XRR_ITS ---
PROCEDURE INFORMATION: Exam: XR Chest Exam date and time: 07/16/2024 9:50 AM Age: 84 years old Clinical indication: Cough TECHNIQUE: Imaging protocol: Radiologic exam of the chest. Views: 1 view. Total images: 1628 COMPARISON: CT angio abd aorta runof 03004 07/05/2024 8:55 AM FINDINGS: Lungs: Unremarkable. No consolidation. Pleural spaces: Unremarkable. No pleural effusion. No pneumothorax. Heart/Mediastinum: Unremarkable. No cardiomegaly. Bones/joints: Unremarkable. XR/XR chest 1V portable [id number] IMPRESSION: No acute findings.
--- NOTE | 2024-07-16 09:51 | W.ED.URI ---
HPI - URI/Sore Throat General: Chief Complaint: Upper Respiratory Infection Stated Complaint: cold systems Time Seen by Provider: 07/16/24 09:32 Source: patient Mode of arrival: wheelchair Limitations: no limitations History of Present Illness: Patient is a very nice 84-year-old male presents to ED today stating that he has felt sick and fatigued over the past 2 to 3 weeks. His most bothersome symptom seems to be a somewhat productive cough and chest congestion. He feels like the coughing is now causing his back to hurt. He denies chest pain or difficulty breathing. Denies hemoptysis. He arrives here in no acute distress with stable vital signs. He is not running fevers. Denies sick contacts. MD elicited complaint: other (chest congestion/fatigue) Onset (ago): week(s) Consistency: constant Severity: mild Description of mucous: yellow Able to tolerate fluids by mouth: Yes Exacerbating factors: nothing Relieving factors: nothing Associated symptoms: Deny chills, chest pain, diarrhea, fever(s), nasal congestion, sinus pain or vomiting Treatments prior to arrival: none Related Data Home Medications ?Medication ?Instructions ?Recorded ?Confirmed albuterol sulfate 90 mcg/actuation 2 inh inhalation Q6H PRN Shortness 02/04/20 07/16/24 breath activated powder inhaler Of Breath carvedilol 25 mg tablet 25 mg PO BID 02/04/20 07/16/24 montelukast 10 mg tablet 10 mg PO DAILY 02/04/20 07/16/24 tiotropium bromide 2.5 2 inh inhalation QAM 02/04/20 07/16/24 mcg/actuation mist for inhalation amiodarone 200 mg tablet 200 mg PO DAILY 09/09/21 07/16/24 clopidogrel 75 mg tablet 75 mg PO DAILY 09/09/21 07/16/24 fluticasone 250 mcg-salmeterol 50 1 inh inhalation Q12H 09/09/21 07/16/24 mcg/dose blistr powdr for inhalation metformin 1,000 mg tablet 1,000 mg PO BID 09/09/21 07/16/24 pantoprazole 40 mg tablet,delayed 40 mg PO DAILY 09/09/21 07/16/24 release pravastatin 40 mg tablet 40 mg PO DAILY 09/09/21 07/16/24 warfarin 5 mg tablet 5 mg PO DIRECTED 09/09/21 07/16/24 cyanocobalamin (vitamin B-12) 1,000 mcg SUBCUT .1x month 01/18/22 07/16/24 1,000 mcg/mL injection kit losartan 100 mg tablet 100 mg PO DAILY 04/22/22 07/16/24 ferrous gluconate 225 mg (27 mg 225 mg PO DAILY 07/15/22 07/16/24 iron) tablet potassium chloride 10 mEq 20 meq PO DAILY 02/01/23 07/16/24 tablet,extended release furosemide 80 mg tablet 80 mg PO DAILY 06/29/24 07/16/24 lisinopril 20 mg tablet 20 mg PO DAILY 06/29/24 07/16/24 Previous Rx's ?Medication ?Instructions ?Recorded Custom Molded Accommodative #1 ea 07/12/23 insoles with orthopedic boots nifedipine 60 mg tablet,extended 60 mg PO DAILY #90 tabs 08/31/23 release 24 hr isosorbide mononitrate 30 mg 30 mg PO DAILY #90 tabs 10/27/23 tablet,extended release 24 hr cilostazol 50 mg tablet 50 mg PO BID #180 tabs 07/13/24 doxycycline monohydrate 100 mg 100 mg PO Q12H 10 days #20 caps 07/16/24 capsule Allergies Allergy/AdvReac Type Severity Reaction Status Date / Time No Known Allergies Allergy Verified 07/16/24 09:37 Review of Systems Const: Reports: fatigue; Denies: fever(s), chills or body aches Eyes: Denies: change in vision, blurry vision, photophobia, dry eyes or seeing flashes ENMT: Denies: throat pain, odynophagia, nasal discharge, nasal congestion or sinus pain Card: Denies: chest pain, palpitations, irregular heart rhythm, edema, swelling of feet/ankles, lightheadedness, syncope or pre-syncope Resp: Reports: productive cough, change in phlegm color and chest congestion GI: Denies: vomiting or diarrhea Musc: Reports: back pain; Denies: extremity pain, extremity swelling, joint swelling or joint redness Neuro: Denies: numbness in extremities, weakness in extremities or sensory changes PFSH ED PFSH: Medical History Gastritis CHF (NYHA class III, ACC/AHA stage C) CAD (coronary artery disease) Hypertension Hyperlipidemia History of colon polyps A-fib COPD (chronic obstructive pulmonary disease) Diabetes mellitus Surgical History S/P appendectomy S/P coronary angiogram Family History Father Diabetes Hypertension Social History Smoking and tobacco/nicotine status: former use of tobacco/nicotine Alcohol intake: never Physical Exam Const: COMMON NORMALS: no acute distress, no limitations, alert and well nourished GENERAL APPEARANCE: cooperative NUTRITIONAL APPEARANCE: obese ORIENTATION/CONSCIOUSNESS: Yes awake, Yes oriented to person, Yes oriented to place and Yes oriented to time Neck/C-Spine: COMMON NORMALS: no JVD Chest: COMMONS NORMALS: normal inspection of the chest and normal palpation of entire chest wall Resp: COMMON NORMALS: normal respiratory effort and clear to auscultation bilaterally AUSCULTATION: clear to auscultation bilaterally Cardio: COMMON NORMALS: no JVD, regular rate and regular rhythm RATE: regular rate RHYTHM: regular rhythm : COMMON NORMALS: Yes no CVA tenderness BLADDER/KIDNEY EXAM: Yes no CVA tenderness Back/Pelvis: COMMON NORMALS: no CVA tenderness THORACIC SPINE/UPPER BACK: Yes paraspinal muscle tenderness Extremity: GENERAL: Yes normal exam except as noted Neuro: COMMON NORMALS: moves all extremities, no focal motor deficits and no sensory deficits noted SENSORIUM/ORIENTATION: Yes alert, Yes oriented to person, Yes oriented to place and Yes oriented to time Skin: COMMON NORMALS: no rashes or lesions noted GENERAL SKIN EXAM: no rashes or lesions noted Course Vital Signs: Vital signs: Vital Signs Temperature 97.8 F 07/16/24 09:32 Pulse Rate 52 L 07/16/24 09:32 Blood Pressure 119/71 07/16/24 09:32 Pulse Oximetry 97 07/16/24 09:32 Oxygen Delivery Me thod Room Air 07/16/24 09:32 MDM - URI/Sore Throat Medical Decision Making Patient clinically appears in no acute distress. His vital signs are stable. Blood work here overall is fairly unremarkable. Mild elevation of his white count of 12.34. Chemistry is nonactionable. He has normal procalcitonin. His CXR is unremarkable. COVID/flu/RSV swab was negative. Based on length of symptoms we will go ahead and treat with doxycycline. Return to ED precautions discussed. Otherwise he can follow-up with primary care. Differential Diagnosis Likely upper respiratory infection Medical Records I reviewed the patient's medical records. Lab Data I reviewed the patient's lab results. 07/16/24 10:15 07/16/24 10:15 Radiology Impressions Chest X-Ray 07/16/24 09:43 IMPRESSION: No acute findings. Laboratory Results WBC 12.34 10^3/uL (3.29-11.43) H 07/16/24 10:15 RBC 4.50 10^6/uL (3.85-5.65) 07/16/24 10:15 Hgb 13.00 g/dL (11.27-16.99) 07/16/24 10:15 Hct 39.5 % (37-53) 07/16/24 10:15 MCV 87.8 fl (82-101) 07/16/24 10:15 MCH 28.9 pg (27-33) 07/16/24 10:15 MCHC 32.9 g/dL (30-55) 07/16/24 10:15 RDW 13.6 % (12.1-15.1) 07/16/24 10:15 Plt Count 440 10^3/cmm (157-399) H 07/16/24 10:15 MPV 10.0 fL (7.4-10.4) 07/16/24 10:15 Neut % (Auto) 65.7 % 07/16/24 10:15 Lymph % (Auto) 16.0 % 07/16/24 10:15 Denali % (Auto) 14.9 % 07/16/24 10:15 Eos % (Auto) 2.0 % 07/16/24 10:15 Baso % (Auto) 0.6 % 07/16/24 10:15 Neut # (Auto) 8.10 10^3/uL (1.8-7.7) H 07/16/24 10:15 Lymph # (Auto) 2.0 10^3/uL (0.8-4.8) 07/16/24 10:15 Denali # (Auto) 1.8 10^3/uL (0.2-0.9) H 07/16/24 10:15 Eos # (Auto) 0.3 10^3/uL (0.0-0.8) 07/16/24 10:15 Baso # (Auto) 0.1 10^3/uL (0.0-0.1) 07/16/24 10:15 Nucleated RBC % (auto) 0 % 07/16/24 10:15 Nucleated RBCs # 0.0 /100WBC 07/16/24 10:15 Sodium 134 mmol/L (136-145) L 07/16/24 10:15 Potassium 4.8 mmol/L (3.5-5.1) 07/16/24 10:15 Chloride 98 mmol/L (98-107) 07/16/24 10:15 Carbon Dioxide 20 mmol/L (22-29) L 07/16/24 10:15 Anion Gap 20.8 (5-19) H 07/16/24 10:15 BUN 23 mg/dL (8-23) 07/16/24 10:15 Creatinine 1.4 mg/dL (0.7-1.2) H 07/16/24 10:15 GFR Calculation Not Reportable 07/16/24 10:15 Glucose 115 mg/dL (65-115) 07/16/24 10:15 Calculated Osmolality 283 mOsm/kg (285-295) L 07/16/24 10:15 Calcium 9.7 mg/dL (8.5-10.5) 07/16/24 10:15 Total Bilirubin 0.3 mg/dL (0.15-1.2) 07/16/24 10:15 AST 24 U/L (0-40) 07/16/24 10:15 ALT 26 U/L (0-41) 07/16/24 10:15 Alkaline Phosphatase 67 U/L (40-130) 07/16/24 10:15 Total Protein 8.0 g/dL (6.6-8.7) 07/16/24 10:15 Albumin 4.0 g/dL (3.5-5.2) 07/16/24 10:15 Globulin 4.0 g/dL (1.3-4.6) 07/16/24 10:15 Procalcitonin 0.06 ng/mL (0-0.5) 07/16/24 10:15 Influenza A (PCR) Negative (Negative) 07/16/24 10:06 Influenza Type B (PCR) Negative (Negative) 07/16/24 10:06 RSV (PCR) Negative (Negative) 07/16/24 10:06 SARS-CoV-2 (PCR) Negative (Negative) 07/16/24 10:06 All radiology interpretation(s) finalized by discharge Discharge Plan Discharge Patient Disposition: Home Clinical Impression: Bronchitis Condition: Stable Prescriptions: New doxycycline monohydrate 100 mg capsule 100 mg PO Q12H 10 Days Qty: 20 0RF No Action albuterol sulfate 90 mcg/actuation aerosol powdr breath activated 2 inh INHALATION Q6H PRN (Reason: Shortness Of Breath) carvedilol 25 mg tablet 25 mg PO BID Rx Instructions: must administer with a meal/food montelukast 10 mg tablet 10 mg PO DAILY tiotropium bromide 2.5 mcg/actuation mist 2 inh INHALATION QAM metformin 1,000 mg tablet 1,000 mg PO BID warfarin 5 mg tablet 5 mg PO DIRECTED Rx Instructions: Take 5mg by mouth on Tuesday and 2.5mg all other days. amiodarone 200 mg tablet 200 mg PO DAILY clopidogrel 75 mg tablet 75 mg PO DAILY fluticasone propion-salmeterol 250-50 mcg/dose blister with device 1 inh inhalation Q12H pantoprazole 40 mg tablet,delayed release (DR/EC) 40 mg PO DAILY pravastatin 40 mg tablet 40 mg PO DAILY cyanocobalamin (vitamin B-12) 1,000 mcg/mL kit 1,000 mcg SUBCUT .1x month ferrous gluconate 225 mg (27 mg iron) tablet 225 mg PO DAILY (DME) Custom Molded Accommodative insoles with orthopedic boots See Rx Instructions .Route .MEDSUPPLY Qty: 1 0RF Rx Instructions: As directed by [facility] and [facility] furosemide 80 mg tablet 80 mg PO DAILY Rx Instructions: May take 40mg extra, if needed. lisinopril 20 mg tablet 20 mg PO DAILY nifedipine 60 mg tablet extended release 24hr 60 mg PO DAILY Qty: 90 3RF isosorbide mononitrate 30 mg tablet extended release 24 hr 30 mg PO DAILY Qty: 90 3RF cilostazol 50 mg tablet 50 mg PO BID Qty: 180 3RF losartan 100 mg Tablet 100 mg PO DAILY potassium chloride 10 mEq tablet extended release 20 meq PO DAILY Discharge Orders: Discharge ED (Routine); Ordered 07/16/24 Ordered By: Lluvia Aragon Referrals: Michelle Mitchell MD [Primary Care Provider] - Patient Instructions: Bronchitis (Acute) - Adult Activity Restrictions/Additional Instructions: Blood work here was unremarkable. Your chest x-ray was normal. Flu/COVID/RSV swab was negative. You are being placed on antibiotics for your not improving bronchitis-like symptoms. Please follow-up with primary care later this week if symptoms do not seem to be improving. The emergency department for any further concerns you have, or chest pain, shortness of breath, difficulty breathing. 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
[2024-07-16 10:27] LABS: Basophils # 0.1 10^3/uL (0.0-0.1); Basophils % 0.6 %; Eosinophils # 0.3 10^3/uL (0.0-0.8); Hematocrit 39.5 % (37-53); Mean Corpuscular HGB Conc 32.9 g/dL (30-55); Mean Corpuscular Hemoglobin 28.9 pg (27-33); Mean Corpuscular Volume 87.8 fl (82-101); Monocytes # 1.8 10^3/uL (0.2-0.9); Monocytes % 14.9 %; Neutrophils % 65.7 %; Nucleated Red Blood Cells % 0 %; Platelet Count 440 10^3/cmm (157-399); Red Cell Distribution Width 13.6 % (12.1-15.1); White Blood Count 12.34 10^3/uL (3.29-11.43)
[2024-07-16 10:46] LABS: Alanine Aminotransferase 26 U/L (0-41); Alkaline Phosphatase 67 U/L (40-130); Anion Gap 20.8 (5-19); Aspartate Amino Transferase 24 U/L (0-40); Blood Urea Nitrogen 23 mg/dL (8-23); Calcium 9.7 mg/dL (8.5-10.5); Carbon Dioxide 20 mmol/L (22-29); Chloride 98 mmol/L (98-107); Creatinine Clr Calc Pharmacy 51.4217; Glucose 115 mg/dL (65-115); Osmolality Calculated 283 mOsm/kg (285-295); Potassium 4.8 mmol/L (3.5-5.1); Sodium 134 mmol/L (136-145); Total Bilirubin 0.3 mg/dL (0.15-1.2)
--- NOTE | 2024-07-16 10:46 | PC.PHAR ---
[facility].
[2024-07-16 10:53] LABS: Procalcitonin 0.06 ng/mL (0-0.5)
[2024-07-16 11:13] LABS: Influenza A NEGATIVE (Negative); Influenza B NEGATIVE (Negative); Respiratory Syncytial Virus Ce NEGATIVE (Negative); SARS-CoV-2 PCR NEGATIVE (Negative)
== END 2024-07-16 12:00 | disposition home or self-care (01) ==
PROVIDERS: Emergency Provider Physician Assistant; PCP Family Medicine
DX: J40 Bronchitis, not specified as acute or chronic (principal); Z11.52 Encounter for screening for COVID-19; Z79.01 Long term (current) use of anticoagulants; Z87.891 Personal history of nicotine dependence; J44.9 Chronic obstructive pulmonary disease, unspecified; E78.5 Hyperlipidemia, unspecified; I11.0 Hypertensive heart disease with heart failure; I50.9 Heart failure, unspecified; I25.10 Atherosclerotic heart disease of native coronary artery without angina pectoris
CPT/HCPCS: 36415; 71045; 80053; 84145; 85025; 87637; 99284

== ENCOUNTER → 2024-07-17 09:27 | Outpatient (BNVA) | payer OTHER, MEDICARE, SELFPAY | PROVIDERS: PCP Family Medicine; Visit Provider Podiatrist Foot & Ankle Surgery | DX: E11.42 Type 2 diabetes mellitus with diabetic polyneuropathy (principal); L60.3 Nail dystrophy; L84 Corns and callosities; Z79.84 Long term (current) use of oral hypoglycemic drugs | CPT/HCPCS: 11056; 11721 ==

== ENCOUNTER → 2024-08-15 08:24 | Outpatient (BNVA) | payer OTHER, SELFPAY | PROVIDERS: PCP Family Medicine; Visit Provider Specialist | DX: M17.0 Bilateral primary osteoarthritis of knee (principal); Z71.89 Other specified counseling | CPT/HCPCS: 20610; J1100; J2795; J3301; J9999 ==

== ENCOUNTER → 2024-08-29 10:23 | Outpatient (BNVA) | payer OTHER, SELFPAY | PROVIDERS: PCP Family Medicine; Visit Provider Nurse Practitioner Family | DX: I73.9 Peripheral vascular disease, unspecified (principal); I25.10 Atherosclerotic heart disease of native coronary artery without angina pectoris; I11.0 Hypertensive heart disease with heart failure; I50.22 Chronic systolic (congestive) heart failure; Z87.891 Personal history of nicotine dependence | CPT/HCPCS: 99214 ==

== ENCOUNTER → 2024-09-25 08:54 | Outpatient (BNVA) | payer OTHER, SELFPAY | PROVIDERS: PCP Family Medicine; Visit Provider Podiatrist Foot & Ankle Surgery | DX: E11.42 Type 2 diabetes mellitus with diabetic polyneuropathy (principal); L60.3 Nail dystrophy; L84 Corns and callosities; E11.8 Type 2 diabetes mellitus with unspecified complications; Z79.84 Long term (current) use of oral hypoglycemic drugs | CPT/HCPCS: 11056; 11721 ==

== ENCOUNTER → 2024-09-27 08:39 | Outpatient (BNVA) | payer OTHER, SELFPAY | PROVIDERS: PCP Family Medicine; Visit Provider Nurse Practitioner Family | DX: I73.9 Peripheral vascular disease, unspecified (principal); I25.10 Atherosclerotic heart disease of native coronary artery without angina pectoris; I11.0 Hypertensive heart disease with heart failure; I50.9 Heart failure, unspecified; Z87.891 Personal history of nicotine dependence | CPT/HCPCS: 99214 ==

== ENCOUNTER 2024-10-16 15:14 | Outpatient (CLI) | payer OTHER, SELFPAY ==
--- NOTE | 2024-10-16 15:21 | CT_ITS ---
WS: [id number] CT adrenals with and without contrast. HISTORY: FOLLOW UP ADRENAL GLAND Noncontrast 2 mm imaging is performed through the abdomen with attention to the adrenal glands. Additional 1 minute and 15 minute delayed images are then performed through the adrenal glands. CONTRAST Omnipaque 350; 95 mL IV.. DLP: 2153.[address] scans at [facility] use at least one of these dose optimization techniques: automated exposure control; mA and/or kV adjustment per patient size (includes targeted exams where dose is matched to clinical indication); or iterative reconstruction. COMPARISON: 07/05/2024 Lower thorax: Benign granuloma RIGHT lower lobe. Dense coronary artery calcifications. Liver: Normal. No intrahepatic dilatation. Gallbladder: Prior cholecystectomy. Pancreas: Normal. Spleen: Normal. ADRENAL GLANDS. RIGHT: Normal. No mass or enlargement. LEFT: LEFT adrenal mass measures 1.5 x 1.3 cm. Hounsfield units are low on the noncontrast exam consistent with an adenoma. Relative washout value of 89% also suggestive of an adenoma. Right kidney: 8 mm cyst exophytic from the upper pole. No renal obstruction. No solid mass. Smaller cortical cyst inferior pole. Left kidney: Cortical cyst measures 1.5 cm in the mid anterior kidney. There are few additional smaller cortical cysts. No solid mass. Aorta: Atherosclerosis aorta. GI tract: As visualized normal. No adenopathy or free fluid. Abdominal wall: No hernia. Visualized osseous structures: Unremarkable. CT/CT abdomen wo/w con [id number] IMPRESSION: 1. LEFT adrenal adenoma measures 1.5 x 1.3 cm. 2. Bilateral renal cysts with no obstruction. 3. Prior cholecystectomy. 4. Dense coronary artery calcifications.
[2024-10-16] MEDS: iohexol 350 mg/mL 500 mL Btl (per mL) IV (16:02)
== END 2024-10-16 15:15 | disposition home or self-care (01) ==
LOC: RAD 15:16
PROVIDERS: PCP Family Medicine; Visit Provider Family Medicine
DX: Z01.89 Encounter for other specified special examinations (principal); D35.02 Benign neoplasm of left adrenal gland; N28.1 Cyst of kidney, acquired; Z90.49 Acquired absence of other specified parts of digestive tract; I25.10 Atherosclerotic heart disease of native coronary artery without angina pectoris; J84.10 Pulmonary fibrosis, unspecified; I70.0 Atherosclerosis of aorta
CPT/HCPCS: 74170

== ENCOUNTER 2024-11-06 06:32 | Outpatient (CLI) | payer OTHER, SELFPAY ==
--- NOTE | 2024-11-06 07:00 | USCV_ITS ---
Huber Holloway Age: 84 Gender: M : 1940 Exam Date: 11/06/2024 07:03 Ordering Phys: Lluvia Rangel NP Technologist: FRANCIE Exam Location: [facility] Indication: sob irrigurlar heart BP: 124 / 74 HR: 69 Rhythm: Sinus Technical Quality: Adequate MEASUREMENTS (Male / Female) Normal Values 2D ECHO LV Diastolic Diameter PLAX 4.9 cm 4.2 - 5.9 / 3.9 - 5.3 cm IVS Diastolic Thickness 1.3 cm 0.6 - 1.0 / 0.6 - 0.9 cm IVS Systolic Thickness 1.8 cm LVPW Diastolic Thickness 1.4 cm 0.6 - 1.0 / 0.6 - 0.9 cm LVPW Systolic Thickness 1.7 cm LVOT Diameter 2.1 cm LV Ejection Fraction 2D Teich 67.5 % LV Ejection Fraction MOD 4C 63.9 % LV Ejection Fraction MOD 2C 59.7 % LV Ejection Fraction 2C AL 60.1 % LA Diameter 5.0 cm RA Systolic Volume 4C AL 45.8 ml RA Systolic Volume 4C MOD 46.0 ml LA Sys Volume AL 110.6 cm cubed LA Sys Volume Index AL 44.2 cm cubed/m squared Aorta at Sinotubular Diameter 2.8 cm IVC Diameter 1.7 cm M-MODE LA Ao Ratio MM 1.7 AV Cusp Separation MM 2.2 cm DOPPLER AV Peak Velocity 161.7 cm/s LVOT Peak Velocity 112.0 cm/s AV Area Cont Eq vti 2.9 cm squared AV Area Cont Eq pk 2.3 cm squared MV Peak Velocity 122.0 cm/s MV Area PHT 3.8 cm squared Mitral E to A Ratio 1.4 TV Peak Velocity 179.5 cm/s TR Peak Velocity 278.0 cm/s TR Peak Gradient 30.9 mmHg TV Peak E Velocity 65.0 cm/s PV Peak Velocity 107.0 cm/s FINDINGS Left Ventricle Normal left ventricular size and systolic function, EF 60%. Mild left ventricular hypertrophy. No regional wall motion abnormalities. Right Ventricle The right ventricle is normal in size and function. Right Atrium The right atrium is normal in size. Left Atrium Moderately increased left atrial size. Mitral Valve Moderate mitral annular calcification. Aortic Valve Thickened aortic valve. Tricuspid Valve No gross abnormalities noted.trace tricuspid valve regurgitation. Pulmonic Valve Pulmonic valve not well visualized. Pericardium Normal pericardium without effusion. Aorta Normal aortic annulus size. IVC The inferior vena cava appears normal. CONCLUSIONS Normal left ventricular size and systolic function, EF 60%. Mild left ventricular hypertrophy. No regional wall motion abnormalities. Moderately increased left atrial size. Moderate mitral annular calcification. Thickened aortic valve. Trace tricuspid valve regurgitation. Estimated pulmonary artery peak systolic pressure 34 mmHg There is no pericardial effusion. There are no intracardiac masses. The study from 03/04/2022, there may not be a significant change Dr Jarvis Shields MD FACC (Electronically Signed) Final Date: 07 November 2024 08:27 S
== END 2024-11-06 06:33 | disposition home or self-care (01) ==
PROVIDERS: PCP Family Medicine; Visit Provider Nurse Practitioner Family
DX: I50.9 Heart failure, unspecified (principal); I51.7 Cardiomegaly; I34.81 Nonrheumatic mitral (valve) annulus calcification; I35.8 Other nonrheumatic aortic valve disorders
CPT/HCPCS: 93306

== ENCOUNTER → 2024-11-16 07:34 | Outpatient (BNVA) | payer OTHER, SELFPAY | PROVIDERS: PCP Family Medicine; Visit Provider Specialist | DX: M17.0 Bilateral primary osteoarthritis of knee (principal) | CPT/HCPCS: 20610; J1100; J2795; J3301; J9999 ==

== ENCOUNTER → 2024-12-25 08:46 | Outpatient (BNVA) | payer OTHER, SELFPAY | PROVIDERS: PCP Family Medicine; Visit Provider Podiatrist Foot & Ankle Surgery | DX: E11.42 Type 2 diabetes mellitus with diabetic polyneuropathy (principal); L60.3 Nail dystrophy; L84 Corns and callosities; Z79.84 Long term (current) use of oral hypoglycemic drugs | CPT/HCPCS: 11056; 11721 ==

== ENCOUNTER → 2024-12-31 12:55 | Outpatient (BNVA) | payer OTHER, SELFPAY | PROVIDERS: PCP Family Medicine; Visit Provider Internal Medicine | DX: I11.0 Hypertensive heart disease with heart failure (principal); I50.9 Heart failure, unspecified; I25.10 Atherosclerotic heart disease of native coronary artery without angina pectoris; I48.91 Unspecified atrial fibrillation; Z79.01 Long term (current) use of anticoagulants; E78.5 Hyperlipidemia, unspecified; E11.9 Type 2 diabetes mellitus without complications; Z79.84 Long term (current) use of oral hypoglycemic drugs; Z98.61 Coronary angioplasty status; Z87.891 Personal history of nicotine dependence | CPT/HCPCS: 99214 ==

== ENCOUNTER 2025-01-03 11:41 | Outpatient (CLI) | payer OTHER, SELFPAY ==
[2025-01-03 13:46] LABS: Hematocrit 35.8 % (37-53); Hemoglobin 11.90 g/dL (11.27-16.99); Mean Corpuscular HGB Conc 33.2 g/dL (30-55); Mean Corpuscular Hemoglobin 29.2 pg (27-33); Mean Corpuscular Volume 88.0 fl (82-101); Nucleated Red Blood Cells % 0 %; Platelet Count 271 10^3/cmm (157-399); Red Blood Count 4.07 10^6/uL (3.85-5.65); White Blood Count 8.47 10^3/uL (3.29-11.43)
[2025-01-03 14:09] LABS: Albumin Level 4.2 g/dL (3.5-5.2); Anion Gap 21.1 (5-19); Blood Urea Nitrogen 26 mg/dL (8-23); Calcium 9.0 mg/dL (8.5-10.5); Carbon Dioxide 20 mmol/L (22-29); Chloride 100 mmol/L (98-107); Glucose 93 mg/dL (65-115); Potassium 4.1 mmol/L (3.5-5.1); Sodium 137 mmol/L (136-145)
[2025-01-03 14:21] LABS: Alanine Aminotransferase 16 U/L (0-41); Albumin Level 4.2 g/dL (3.5-5.2); Alkaline Phosphatase 67 U/L (40-130); Anion Gap 21.0 (5-19); Aspartate Amino Transferase 14 U/L (0-40); Blood Urea Nitrogen 26 mg/dL (8-23); Calcium 9.0 mg/dL (8.5-10.5); Carbon Dioxide 20 mmol/L (22-29); Chloride 98 mmol/L (98-107); Globulin 2.8 g/dL (1.3-4.6); Glucose 91 mg/dL (65-115); NT Pro B Type Natriuretic Pept 213 pg/mL (0-450); Osmolality Calculated 284 mOsm/kg (285-295); Potassium 4.0 mmol/L (3.5-5.1); Sodium 135 mmol/L (136-145); Total Protein 7.0 g/dL (6.6-8.7)
== END 2025-01-03 11:42 | disposition home or self-care (01) ==
PROVIDERS: Nurse Practitioner Family; PCP Family Medicine; Visit Provider Internal Medicine Nephrology
DX: I50.9 Heart failure, unspecified (principal); N18.31 Chronic kidney disease, stage 3a
CPT/HCPCS: 36415; 80053; 80069; 83880; 85025

== ENCOUNTER → 2025-01-16 11:46 | Outpatient (BNVA) | payer OTHER, SELFPAY | PROVIDERS: PCP Family Medicine; Visit Provider Internal Medicine | DX: I73.9 Peripheral vascular disease, unspecified (principal); I11.0 Hypertensive heart disease with heart failure; I50.9 Heart failure, unspecified; I48.91 Unspecified atrial fibrillation; Z79.01 Long term (current) use of anticoagulants; I25.10 Atherosclerotic heart disease of native coronary artery without angina pectoris; E78.5 Hyperlipidemia, unspecified; E11.9 Type 2 diabetes mellitus without complications; Z79.84 Long term (current) use of oral hypoglycemic drugs; Z87.891 Personal history of nicotine dependence; R58 Hemorrhage, not elsewhere classified; I10 Essential (primary) hypertension | CPT/HCPCS: 36415; 80048; 85025; 85610; 99214 ==

== ENCOUNTER 2025-02-01 08:20 | Outpatient (CLI) | payer OTHER, SELFPAY ==
[2025-02-01] VITALS (33 sets, daily range): BP systolic 111–143; BP diastolic 54–74; PULSE 60–70; RESP 13–29; TEMP 36.6–36.8; O2SAT 90–98; BMI 38.1
--- NOTE | 2025-02-01 10:00 | XACV_ITS ---
Ht: 173 cm Wt: 114 kg BSA: 2.39 m2 Any Known Allergies: No known allergies Gender: Male : 1940 Exam Type: Invasive Peripheral Vascular Procedure(s): Procedure Description: Peripheral Cath Diagnostic Procedure Procedure Description: Abdominal aortic angiography Procedure Description: Lower extremities' angiography Exam Priority: Routine Abdominal Diagnostic Findings Distal abdominal aorta is patent. Lower Extremity Diagnostic Findings INDICATION: Severe lifestyle-limiting claudication. Left lower extremity findings: Left common iliac artery is patent. Left internal iliac artery is patent. Left external iliac artery is patent. Left common femoral artery is patent. Left profunda artery is patent. Left SFA is patent. Left popliteal artery is patent. Left anterior tibial artery has mid to distal 80% stenosis. Left posterior tibial artery is patent. Left peroneal artery has 90% stenosis. Right lower extremity findings: Right common iliac artery is patent. Right internal iliac artery is patent. Right external iliac artery is patent. Right common femoral artery is patent. Right profunda artery is patent. Right SFA is patent. Right popliteal artery is patent. Below the knee patient has 3 vessel runoff with moderate diffuse disease of anterior tibial artery and peroneal artery. Conclusions Significant below the knee Peripheral artery disease on left lower extremity. Does not explain leg pain symptoms bilaterally. At this time we will medically treat patient. Recommendations Aggressive medical tjherapy, exercise and risk factor modification. Outpatient cardiology follow up in 2 weeks. Hemodynamic Data Phase:Rest AO : 118.0 / 48.0 ( 76.0 ) @ 1:52:00 PM 98.0 / 52.0 ( 74.0 ) @ 1:59:00 PM Access Site Site: Right Femoral artery Sheath Size: 6 Fr Hemost... Method: Mynx Hemost... Success: Successful Procedure Details Findings Pre-Procedure Time Out. Identified patient by full name and date of as verbalized by the patient/guarantor. Does the consent match the physician's order: Yes. Accurate & Complete Informed Consent: Yes. Inpatient/Outpatient History & Physical on Chart: Yes. If H&P is completed, is and addenduem needed: No; If yes, is the addendum complete: N/A. Visualize and Verify Site with Patient/Guarantor: N/A. Relevant Radiology Images available: Yes. Pre-op teaching completed and patient verbalized understanding. The risks, benefits, and alternatives of sedation and/or procedure were discussed by physician. The patient agrees to continue. Procedure started. PERRLA. 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 Lungs clear x 5 lobes. IV Site on Arrival: 22 gauge in the right anticubital. IV Fluids: 0.9% NaCl at KVO. 0 mL infused prior to microbiology lab analyst. Pre Procedural Pulses: bilateral dorsalis pedis was Doppled. Pre Procedural Pulses: bilateral posterior tibial was Doppled. Pre Procedural Pulses: bilateral radial was 1+. Oxygen started at 2liters/min via nasal canula. bilateral groins was prepped with chloroprep then draped in the usual sterile fashion. Baseline sample Acquired. HR: 71 BPM. Physician arrived. Physician scrubbed in. Immediate Pre-Procedure Time Out. Correct Patient: Yes; Correct Procedure: Yes; Correct Site: Yes; Correct Patient Position: Yes; Correct Supplies: Yes; Dried Flammable Prep: Yes; Blood Products Available: N/A;. Lidocaine 1% infiltrated to the right groin. Arterial access obtained with micropuncture set. Lidocaine 1% infiltrated to the right groin. A 5FrFr UF catheter in over wire. Abdominal aortogram performed in AP @ 10 mL/sec for a total of 30 mL. Catheter advanced to the left iliac. DSA performed of the left lower leg. Catheter out. Sheath injected in Right common femoral artery and runoff performed. DSA performed of the right lower leg. A Right femoral angiogram was performed to determine safe placement of closure device. A Mynx was successful obtaining hemostatsis at the Right Femoral artery insertion site. Vital chart was stopped. Post Procedure: Pulses reassessed and unchanged. PERRLA. 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 No VTE prophylaxis required. Medication's Wasted: Lidocaine 1% = 10 mL. Medication's Wasted: Other = Fentanyl 25 mcg. Total IV fluids: 30 mL. Post-op diagnosis: PAD. Complications: None. Estimated blood loss: 5mL-10mL. Responsiveness - Normal response to verbal stimuli; alert and oriented, PERRLA. Airway - Unaffected, no intervention required; spontaneous ventilation. Circulation: W/N/L, pulses unchanged. Nausea/Vomiting: No. Procedure completed. Patient transferred by bed to 1st floor. Procedure Medications Start: 12:42 PM Stop: 12:42 PM Medication: Versed 1 mg and Fentanyl 25 mcg Amount: 1 Route: I.V. Start: 12:46 PM Stop: 12:46 PM Medication: Fentanyl Amount: 25 mcg Route: I.V. Start: 12:50 PM Stop: 12:50 PM Medication: Fentanyl Amount: 25 mcg Route: I.V. Start: 12:58 PM Stop: 12:58 PM Medication: Versed Amount: 1 mg Route: I.V. I, the attending physician, have reviewed and verified all procedure medications. Yes, all medications given per verbal order History/Risk Factors Hypertension: Yes Dyslipidemia: Yes Peripheral Arterial Disease (PAD): Yes Obesity: No Renal Disease: No Tobacco Use: Former Prior Interventions PCI: No CABG: No Valve Surgery: No Report Signatures Finalized by Miguel Agrawal MD on 02/16/2025 02:57 PM
--- NOTE | 2025-02-01 12:33 | W.PM.OPSUD ---
Surgery/Procedure H&P Update DATE OF PROCEDURE: February 01, 2025 DATE H&P PERFORMED: 01/16/25 H&P UPDATE INFORMATION: I have reviewed H&P completed within last 30 days, I have examined patient prior to procedure and No changes to prior documentation PREOP DIAGNOSIS: Severe lifestyle limiting claudication PRIMARY INDICATION FOR PROCEDURE: Sever lifestyle limiting claudication PLANNED PROCEDURE: Operation Date: 02/01/25 10:00 Proposed Procedures p Peripheral Diagnostic - periph angio bilat(Bilateral) - Miguel Agrawal M.D Possible percutaneous intervention PATIENT REASSESSED PRIOR TO SEDATION, WITH NO CHANGE NOTED: Yes PHYSICAL EXAM: alert, oriented x 3, clear to auscultation bilaterally and regular rate & rhythm AIRWAY EVAL/ANESTHESIA PLAN: normal airway, ASA III, Local Anesthesia, Risks, benefits & alternatives of sedation and/or procedure discussed and Patient agrees to continue as planned ADDITIONAL INFORMATION: Moderate sedation
--- NOTE | 2025-02-01 13:17 | PM.PROC ---
Procedure Note: Date of procedure: 02/01/25 Pre-procedure diagnosis: Severe lifestyle-limiting claudication Post-procedure diagnosis: other (Left lower extremity below the knee PAD) Procedure: Patient has below the knee PAD which is significant on left lower extremity. Does not explain pain symptoms bilaterally. At this time we will continue with medical therapy Performing Provider: Miguel Agrawal Complications: None Condition: stable Disposition: same day Coding Level of Care Code Acute Code for Eladio Gonzalez
--- NOTE | 2025-02-01 13:36 | PC.NURSE ---
received from cardiac labor service representative via bed at 1320,in to room 105.report received.pt is alert and awake and oriented x 4.denies pain at present.sr w/occas pvc's on monitor.right femoral access site was closed with minx device in the labor service representative.right groin dressing is dry and intact.no hematoma noted.right leg is warm to touch and with brisk capillary refill.palpable dp pulse noted.pt instructed in activity restrictions s/p femoral artery procedure...and instructed to notify staff for any bleeding,pain,numbness,sob or for any concerns at all.pt verb understanding of instructions
--- NOTE | 2025-02-01 18:25 | PC.NURSE ---
vss.no hematoma noted.pt up and about in room.tolerating well.discharge instructions given and explained.pt and spouse verb understanding of instructions.discharged via pt's scooter at this time to exit.spouse to drive pt home
== END 2025-02-01 18:30 | disposition home or self-care (01) ==
LOC: CCL 08:23 → CSU 13:30
PROVIDERS: PCP Family Medicine; Visit Provider Internal Medicine
DX: I70.223 Atherosclerosis of native arteries of extremities with rest pain, bilateral legs (principal); E78.5 Hyperlipidemia, unspecified; Z87.891 Personal history of nicotine dependence; K21.9 Gastro-esophageal reflux disease without esophagitis; Z79.84 Long term (current) use of oral hypoglycemic drugs; I11.0 Hypertensive heart disease with heart failure; I50.9 Heart failure, unspecified; I48.91 Unspecified atrial fibrillation; J44.9 Chronic obstructive pulmonary disease, unspecified; E11.9 Type 2 diabetes mellitus without complications
CPT/HCPCS: 36415; 75625; 75716; 99152; 99153; C1760; C1769; C1887; C1894; G0269; J1644; J2250; J3010; J3490; J7030; J9999; Q0163; Q9967

== ENCOUNTER → 2025-02-20 13:53 | Outpatient (BNVA) | payer OTHER, SELFPAY | PROVIDERS: PCP Family Medicine; Visit Provider Specialist | DX: M17.0 Bilateral primary osteoarthritis of knee (principal) | CPT/HCPCS: 20610; J1100; J2795; J3301; J9999 ==

== ENCOUNTER → 2025-03-04 09:02 | Outpatient (BNVA) | payer OTHER, SELFPAY | PROVIDERS: PCP Family Medicine; Visit Provider Podiatrist Foot & Ankle Surgery | DX: E11.42 Type 2 diabetes mellitus with diabetic polyneuropathy (principal); L60.3 Nail dystrophy; L84 Corns and callosities; E11.8 Type 2 diabetes mellitus with unspecified complications; Z79.84 Long term (current) use of oral hypoglycemic drugs | CPT/HCPCS: 11056; 11721 ==

== ENCOUNTER → 2025-04-10 12:34 | Outpatient (BNVA) | payer OTHER, SELFPAY | PROVIDERS: PCP Family Medicine; Visit Provider Internal Medicine | DX: I73.9 Peripheral vascular disease, unspecified (principal); I11.0 Hypertensive heart disease with heart failure; I50.9 Heart failure, unspecified; I48.91 Unspecified atrial fibrillation; I25.10 Atherosclerotic heart disease of native coronary artery without angina pectoris; Z87.891 Personal history of nicotine dependence; Z79.01 Long term (current) use of anticoagulants | CPT/HCPCS: 99214 ==